=== PATIENT | male | born 1960 | race Caucasian/White ===

== ENCOUNTER 2017-06-28 11:03 | Emergency (ER) | payer SELFPAY ==
[2017-06-28] MEDS ORDERED: IBUPROFEN 600 MG TABLET PO ONE (12:28)
[2017-06-28 13:07] LABS: ABSOLUTE BASOPHILS # (AUTO) 0.1 10^3/uL (0.0-0.2); ABSOLUTE LYMPHOCYTES (AUTO) 1.2 10^3/uL (0.5-4.7); ABSOLUTE MONOCYTES (AUTO) 0.8 10^3/uL (0.1-1.4); ABSOLUTE NEUT (AUTO) 5.9 10^3/uL (1.7-8.2); BASOPHILS % (AUTO) 0.8 % (0-2); EOSINOPHILS % (AUTO) 0.5 % (0-6); HEMOGLOBIN 15.3 g/dL (13.5-17.0); HGB HCT DIFFERENCE 1.9; LYMPHOCYTES % (AUTO) 14.5 % (13-45); MEAN CORPUSCULAR HEMOGLOBIN 35.7 pg (27.0-33.4); MEAN CORPUSCULAR HGB CONC 34.8 g/dL (32.0-36.0); MEAN CORPUSCULAR VOLUME 102 fl (80-97); MONOCYTES % (AUTO) 10.3 % (3-13); SEGMENTED NEUTROPHILS % (AUTO) 73.9 % (42-78)
[2017-06-28 13:13] LABS: APPEARANCE,URINE CLEAR; BILIRUBIN,URINE NEGATIVE (NEGATIVE); GLUCOSE, URINE NEGATIVE (NEGATIVE); KETONES,URINE NEGATIVE (NEGATIVE); LEUKOCYTE ESTERASE,URINE NEGATIVE (NEGATIVE); NITRITE,URINE NEGATIVE (NEGATIVE); PROTEIN,URINE NEGATIVE (NEGATIVE); URINE SPECIFIC GRAVITY 1.002; UROBILINOGEN,URINE NEGATIVE mg/dL (<2.0)
--- NOTE | 2017-06-28 13:19 | RADIOLOGY REPORT (SQ) ---
EXAM DESCRIPTION: CHEST PA/LAT COMPLETED DATE/TIME: 06/28/2017 1:08 pm REASON FOR STUDY: left lat cp COMPARISON: 10/13/2009. EXAM PARAMETERS: NUMBER OF VIEWS: two views TECHNIQUE: Digital Frontal and Lateral radiographic views of the chest acquired. RADIATION DOSE: NA LIMITATIONS: none FINDINGS: LUNGS AND PLEURA: No opacities, masses or pneumothorax. No pleural effusion. MEDIASTINUM AND HILAR STRUCTURES: No masses or contour abnormalities. HEART AND VASCULAR STRUCTURES: Heart normal size. No evidence for failure. BONES: No acute findings. HARDWARE: None in the chest. OTHER: No other significant finding. IMPRESSION: NO SIGNIFICANT RADIOGRAPHIC FINDING IN THE CHEST. TECHNICAL DOCUMENTATION: JOB ID: [id number] [employer]- All Rights Reserved
[2017-06-28 13:32] LABS: ALANINE AMINOTRANSFERASE 34 U/L (21-72); ALBUMIN 3.9 g/dL (3.5-5.0); ALKALINE PHOSPHATASE 68 U/L (38-126); ANION GAP 8 (5-19); ASPARTATE AMINO TRANSFERASE 24 U/L (17-59); BILIRUBIN,DIRECT 0.4 mg/dL (0.0-0.4); BILIRUBIN,TOTAL 0.9 mg/dL (0.2-1.3); BLOOD UREA NITROGEN 7 mg/dL (7-20); CALCIUM 9.1 mg/dL (8.4-10.2); CARBON DIOXIDE 27 mmol/L (22-30); CHLORIDE 100 mmol/L (98-107); CREATININE RESULT 0.82 mg/dL (0.52-1.25); GLUCOSE 101 mg/dL (75-110); POTASSIUM 4.6 mmol/L (3.6-5.0); SODIUM 135.3 mmol/L (137-145); TOTAL PROTEIN 6.7 g/dL (6.3-8.2)
--- NOTE | 2017-06-28 13:52 | ER Document Report ---
ED General - General Chief Complaint: Back Pain Stated Complaint: FLANK PAIN Time Seen by Provider: 06/28/17 12:40 Notes: 57 yo male c/o acute onset of pain to left lateral chest wall yesterday. pain started after he unloaded a truck. pain increased with deep breathing and trunk movement. denies heart pain or shortness of breath TRAVEL OUTSIDE OF THE [place] IN LAST 30 DAYS: No - HPI Onset: Yesterday Onset/Duration: Sudden Quality of pain: Sharp Associated symptoms: None Exacerbated by: Movement Relieved by: Denies Similar symptoms previously: No Recently seen / treated by doctor: No - Related Data Allergies/Adverse Reactions: Penicillins Allergy (Severe, Verified 06/28/17 11:05) rash Past Medical History - General Information source: Patient - Social History Smoking Status: Current Every Day Smoker Chew tobacco use (# tins/day): No Frequency of alcohol use: Heavy Drug Abuse: None Lives with: Family Family History: Reviewed & Not Pertinent Patient has suicidal ideation: No Patient has homicidal ideation: No - Past Medical History Cardiac Medical History: Reports: Hx Hypertension Renal/ Medical History: Denies: Hx Peritoneal Dialysis Past Surgical History: Reports: Hx Testicular Surgery - Right removed for CA - Immunizations Hx Diphtheria, Pertussis, Tetanus Vaccination: No Review of Systems - Review of Systems Constitutional: No symptoms reported EENT: No symptoms reported Cardiovascular: No symptoms reported Respiratory: See HPI Gastrointestinal: No symptoms reported Genitourinary: No symptoms reported Male Genitourinary: No symptoms reported Musculoskeletal: No symptoms reported Skin: No symptoms reported Hematologic/Lymphatic: No symptoms reported Neurological/Psychological: No symptoms reported Physical Exam - Vital signs Vitals: Temp Pulse Resp BP Pulse Ox 98.5 F 97 18 167/107 H 97 06/28/17 11:05 06/28/17 11:05 06/28/17 11:05 06/28/17 11:05 06/28/17 11:05 Interpretation: Hypertensive - known hypertensive. not taking meds x 1 year - General General appearance: Appears well, Alert - HEENT Head: Normocephalic, Atraumatic Eyes: Normal Pupils: PERRL - Respiratory Respiratory status: No respiratory distress Chest status: Tender - focal left lateral intercostal tenderness. good breath sounds throughout Breath sounds: Normal Chest palpation: Normal - Cardiovascular Rhythm: Regular Heart sounds: Normal auscultation Murmur: No - Abdominal Inspection: Normal Distension: No distension Bowel sounds: Normal Tenderness: Nontender Organomegaly: No organomegaly - Back Back: Normal, Nontender - Extremities General upper extremity: Normal inspection, Nontender, Normal color, Normal ROM , Normal temperature General lower extremity: Normal inspection, Nontender, Normal color, Normal ROM , Normal temperature, Normal weight bearing. No: Tejal's sign - Neurological Neuro grossly intact: Yes Cognition: Normal Orientation: AAOx4 [place] Coma Scale Eye Opening: Spontaneous [place] Coma Scale Verbal: Oriented Jalil Coma Scale Motor: Obeys Commands Jalil Coma Scale Total: 15 Speech: Normal Motor strength normal: LUE, RUE, LLE, RLE Sensory: Normal - Psychological Associated symptoms: Normal affect, Normal mood - Skin Skin Temperature: Warm Skin Moisture: Dry Skin Color: Normal Course - Re-evaluation Re-evalutation: 06/28/17 13:49 pt is a 57 yo male c/o pain to left lateral chest wall, worse with movement and deep inspiration. lungs are CTA, no increased work of breathing. H&P is c/w muscluskelatal pain. chest xray is negative, EKG showing NSR, no ectopy or ST change. I estimate there is low risk for pneumothorax, PE, acute coronary syndrom or thoracic aortic dissection. thus I consider discharge home reasonable with a short course of muscle relaxant and pain medication. - Vital Signs Vital signs: Temp Pulse Resp BP Pulse Ox 98.5 F 97 18 167/107 H 97 06/28/17 11:05 06/28/17 11:05 06/28/17 11:05 06/28/17 11:05 06/28/17 11:05 - Laboratory Result Diagrams: 06/28/17 12:46 06/28/17 12:46 Laboratory results interpreted by me: 06/28/17 06/28/17 06/28/17 12:46 12:46 12:46 RBC 4.30 L MCV 102 H MCH 35.7 H Plt Count 128 L Sodium 135.3 L Urine Blood SMALL H Discharge - Discharge Clinical Impression: Chest wall pain Condition: Stable Disposition: HOME, SELF-CARE Instructions: Anti-Inflammatory Medication ([facility]), Chest Wall Pain ([facility]), Muscle Strain ([facility]), Oral Narcotic Medication ([facility]), Warm Packs ([facility]), Muscle Relaxers ([facility]) Additional Instructions: Your xray and EKG are normal Your pain is most likely musculskelatal in origin Take medications as prescribed apply warm compresses to sore area Follow up with primary care if pain persists return to ER for any worsening Prescriptions: Ibuprofen [Motrin 800 Mg Tablet] 800 mg PO Q6H #20 tablet Methocarbamol [Robaxin 500 Mg Tablet] 1,000 mg PO Q6 #30 tablet Oxycodone HCl/Acetaminophen [Percocet 5-325 mg Tablet] 1 - 2 tab PO ASDIR PRN # 15 tablet PRN Reason:
[2017-06-28 14:05] VITALS: BP 164/97
--- NOTE | 2017-06-29 00:08 | EKG REPORT ---
SEVERITY:- NORMAL ECG - SINUS RHYTHM : Confirmed by: Becky Vogt 29-Jun-2017 00:07:59
== END 2017-06-28 14:04 | disposition home or self-care (01) ==
LOC: ER 11:03
DX: R07.89 Other chest pain (principal); M54.9 Dorsalgia, unspecified; F17.200 Nicotine dependence, unspecified, uncomplicated
CPT/HCPCS: 36415; 71020; 80053; 81001; 85025; 93005; 93010; 99284

== ENCOUNTER 2018-04-29 19:14 | Inpatient (IN) | payer SELFPAY ==
--- NOTE | 2018-04-29 20:37 | ER Document Report ---
ED Medical Screen (RME) - General Chief Complaint: Productive Cough Stated Complaint: TROUBLE BREATHING Time Seen by Provider: 04/29/18 20:34 Mode of Arrival: Ambulatory Information source: Patient Notes: Patient complained of shortness of breath associated with cough productive of brownish sputum. He denies fever. chills, chest pain, nausea or vomiting. I have greeted and performed a rapid initial assessment of this patient. A comprehensive ED assessment and evaluation of the patient, analysis of test results and completion of the medical decision making process will be conducted by additional ED providers. TRAVEL OUTSIDE OF THE [place] IN LAST 30 DAYS: No - Related Data Allergies/Adverse Reactions: Penicillins Allergy (Severe, Verified 04/29/18 19:26) rash Past Medical History - Social History Chew tobacco use (# tins/day): No Frequency of alcohol use: None Drug Abuse: None - Past Medical History Cardiac Medical History: Reports: Hx Hypertension Renal/ Medical History: Denies: Hx Peritoneal Dialysis Past Surgical History: Reports: Hx Testicular Surgery - Right removed for CA - Immunizations Hx Diphtheria, Pertussis, Tetanus Vaccination: No Physical Exam - Vital signs Vitals: Temp Pulse Resp BP Pulse Ox 98.8 F 89 20 136/86 H 95 04/29/18 19:42 04/29/18 19:42 04/29/18 19:42 04/29/18 19:42 04/29/18 19:42 Course - Vital Signs Vital signs: Temp Pulse Resp BP Pulse Ox 98.8 F 89 20 136/86 H 95 04/29/18 19:42 04/29/18 19:42 04/29/18 19:42 04/29/18 19:42 04/29/18 19:42
[2018-04-29 21:57] LABS: ABSOLUTE BASOPHILS # (AUTO) 0.1 10^3/uL (0.0-0.2); ABSOLUTE LYMPHOCYTES (AUTO) 1.4 10^3/uL (0.5-4.7); ABSOLUTE NEUT (AUTO) 10.8 10^3/uL (1.7-8.2); BASOPHILS % (AUTO) 0.6 % (0-2); EOSINOPHILS % (AUTO) 0.2 % (0-6); HEMATOCRIT 36.9 % (37.9-51.0); HEMOGLOBIN 13.2 g/dL (13.5-17.0); LYMPHOCYTES % (AUTO) 10.2 % (13-45); MEAN CORPUSCULAR HEMOGLOBIN 34.7 pg (27.0-33.4); MEAN CORPUSCULAR HGB CONC 35.8 g/dL (32.0-36.0); MEAN CORPUSCULAR VOLUME 97 fl (80-97); MONOCYTES % (AUTO) 7.4 % (3-13); PLATELET COUNT 577 10^3/uL (150-450); RED BLOOD COUNT 3.81 10^6/uL (4.35-5.55); RED CELL DISTRIBUTION WIDTH 14.1 % (11.5-14.0); SEGMENTED NEUTROPHILS % (AUTO) 81.6 % (42-78); TOTAL CELLS COUNTED % (AUTO) 100 %; WHITE BLOOD COUNT 13.3 10^3/uL (4.0-10.5)
[2018-04-29 22:14] LABS: ALANINE AMINOTRANSFERASE 66 U/L (21-72); ALBUMIN 3.2 g/dL (3.5-5.0); ALKALINE PHOSPHATASE 101 U/L (38-126); ANION GAP 12 (5-19); ASPARTATE AMINO TRANSFERASE 37 U/L (17-59); BILIRUBIN,DIRECT 0.6 mg/dL (0.0-0.4); BILIRUBIN,TOTAL 0.9 mg/dL (0.2-1.3); BLOOD UREA NITROGEN 5 mg/dL (7-20); CALCIUM 8.9 mg/dL (8.4-10.2); CARBON DIOXIDE 25 mmol/L (22-30); CHLORIDE 89 mmol/L (98-107); GLUCOSE 104 mg/dL (75-110); POTASSIUM 3.8 mmol/L (3.6-5.0); SODIUM 125.5 mmol/L (137-145); TOTAL PROTEIN 6.8 g/dL (6.3-8.2)
[2018-04-29 22:26] LABS: INTERNATIONAL RATION (INR) 1.25; NT PRO BNP 136 pg/mL (5-900); PROTHROMBIN TIME 16.3 SEC (11.4-15.4)
[2018-04-29 22:27] LABS: PARTIAL THROMBOPLASTIN TIME 33.2 SEC (23.5-35.8); TROPONIN I < 0.012 ng/mL
[2018-04-29] MEDS ORDERED: NORMAL SALINE 1000 ML 1,000 ML IV ONE (23:13)
--- NOTE | 2018-04-30 00:21 | ER Document Report ---
ED Respiratory Problem - General Mode of Arrival: Ambulatory TRAVEL OUTSIDE OF THE [place] IN LAST 30 DAYS: No <BARBIE GOMEZ - Last Filed: 04/30/18 06:53> <MICHAEL HOLGUIN - Last Filed: 04/30/18 07:42> - General Chief Complaint: Productive Cough Stated Complaint: TROUBLE BREATHING Time Seen by Provider: 04/29/18 20:34 Notes: Patient is a 58-year-old male that comes to the emergency department for chief complaint of cough with bennett sputum production, he states he has coughed so much she has become sore in his ribs, he states that intermittently he feels some shortness of breath. He reports some chills, some night sweats. He denies nausea or vomiting, specific chest pain other than with cough. He takes no daily medications. He denies any known medical diagnosis, he has not seen a primary care provider for years. 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 He smokes. (BARBIE GOMEZ) - Related Data Allergies/Adverse Reactions: Penicillins Allergy (Severe, Verified 04/29/18 19:26) rash Past Medical History - General Information source: Patient - Social History Smoking Status: Current Every Day Smoker Chew tobacco use (# tins/day): No Smoking Education Provided: Yes - <3 min Frequency of alcohol use: None Drug Abuse: None Lives with: Family Family History: Reviewed & Not Pertinent Patient has suicidal ideation: No Patient has homicidal ideation: No - Past Medical History Cardiac Medical History: Reports: Hx Hypertension Renal/ Medical History: Denies: Hx Peritoneal Dialysis Past Surgical History: Reports: Hx Testicular Surgery - Right removed for CA - Immunizations Hx Diphtheria, Pertussis, Tetanus Vaccination: Yes <BARBIE GOMEZ - Last Filed: 04/30/18 06:53> Review of Systems - Review of Systems Constitutional: See HPI EENT: No symptoms reported Cardiovascular: No symptoms reported Respiratory: See HPI Gastrointestinal: No symptoms reported Genitourinary: No symptoms reported Male Genitourinary: No symptoms reported Musculoskeletal: No symptoms reported Skin: No symptoms reported Hematologic/Lymphatic: No symptoms reported Neurological/Psychological: No symptoms reported <BARBIE GOMEZ - Last Filed: 04/30/18 06:53> Physical Exam <BARBIE GOMEZ - Last Filed: 04/30/18 06:53> <MICHAEL HOLGUIN - Last Filed: 04/30/18 07:42> - Vital signs Vitals: Temp Pulse Resp BP Pulse Ox 98.8 F 89 20 136/86 H 95 04/29/18 19:42 04/29/18 19:42 04/29/18 19:42 04/29/18 19:42 04/29/18 19:42 - Notes Notes: GENERAL: Alert, interacts well. No acute distress. HEAD: Normocephalic, atraumatic. EYES: Pupils equal, round, and reactive to light. Extraocular movements intact. ENT: Oral mucosa moist, tongue midline. NECK: Full range of motion. Supple. Trachea midline. LUNGS: A few scattered coarse breath sounds, intermittent cough, no wheezes, rales, or rhonchi. No respiratory distress. HEART: Regular rate and rhythm. No murmur ABDOMEN: Soft, non-tender. Non-distended. Bowel sounds present in all 4 quadrants. EXTREMITIES: Moves all 4 extremities spontaneously. No edema, normal radial and dorsalis pedis pulses bilaterally. No cyanosis. BACK: no cervical, thoracic, lumbar midline tenderness. No saddle anesthesia, normal distal neurovascular exam. NEUROLOGICAL: Alert and oriented x3. Normal speech. [cranial nerves II through XII grossly intact]. PSYCH: Normal affect, normal mood. SKIN: Warm, dry, normal turgor. No rashes or lesions noted. (BARBIE GOMEZ) Course - Laboratory Result Diagrams: 04/29/18 21:45 04/30/18 05:30 <BARBIE GOMEZ - Last Filed: 04/30/18 06:53> - Laboratory Result Diagrams: 04/29/18 21:45 04/30/18 05:30 <MICHAEL HOLGUIN - Last Filed: 04/30/18 07:42> - Re-evaluation Re-evalutation: 04/30/18 I wore a respirator mask when evaluating the patient because of the initial concerning cavitary lesion on the chest x-ray. He does have leukocytosis which is mild, no bandemia. No fever. Persistent mild cough. Unremarkable respiratory examination on my evaluation, no hypoxia. Troponin is not elevated. Because of indeterminate lesion, ongoing cough, smoking patient, will perform CTA to evaluate further. CTA showing left-sided pulmonary emboli extending into smaller branches. In addition to this there are multiple lesions, possible infection versus neoplasm versus immune reaction. Patient has hyponatremia, he does have a history of alcohol use which is heavy although he has not had any recently reportedly per patient and son, concern for possible SIADH and undiagnosed cancer history with secondary pulmonary emboli. Patient does not have established primary care follow-up, he does not have insurance, he reports significant dyspnea on exertion, will discuss with hospitalist for admission. Giving slow NS for hyponatremia. Discussed with Dr. Shelley, internal medicine, patient will be admitted to telemetry full admission. He recommends Lovenox for anticoagulation instead of heparin. (BARBIE GOMEZ) 04/30/18 07:42 Saw this patient with UMESH Reagan. Agree with management. Stable at time of admission. Lovenox initiated. (MICHAEL HOLGUIN) - Vital Signs Vital signs: Temp Pulse Resp BP Pulse Ox 98.8 F 89 26 H 125/86 H 95 04/29/18 19:42 04/29/18 19:42 04/30/18 07:01 04/30/18 07:00 04/30/18 07:01 - Laboratory Laboratory results interpreted by me: 04/29/18 04/29/18 04/29/18 21:45 21:45 21:45 WBC 13.3 H RBC 3.81 L Hgb 13.2 L Hct 36.9 L MCH 34.7 H RDW 14.1 H Plt Count 577 H Seg Neutrophils % 81.6 H Lymphocytes % 10.2 L Absolute Neutrophils 10.8 H PT 16.3 H Sodium 125.5 L Chloride 89 L BUN 5 L Direct Bilirubin 0.6 H Albumin 3.2 L Critical Care Note - Critical Care Note Total time excluding time spent on procedures (mins): 45 - evaluation and management of SOB, diagnosis of PE and lung mass, coordination of admission, multiple re-evaluations. <MICHAEL HOLGUIN - Last Filed: 04/30/18 07:42> Discharge - Discharge Admitting Provider: Hospitalist Unit Admitted: Telemetry <BARBIE GOMEZ - Last Filed: 04/30/18 06:53> - Discharge Admitting Provider: [place] Shelley Unit Admitted: Telemetry <MICHAEL HOLGUIN - Last Filed: 04/30/18 07:42> - Discharge Clinical Impression: Shortness of breath, Lesion of lung, Hyponatremia Pulmonary embolism Qualifiers: Pulmonary embolism type: other Chronicity: acute Acute cor pulmonale presence: without acute cor pulmonale Qualified Code(s): I26.99 - Other pulmonary embolism without acute cor pulmonale Condition: Stable Disposition: ADMITTED INPATIENT
[2018-04-30] MEDS: NORMAL SALINE 1000 ML 1,000 ML IV PRN ×2 (02:26→15:32)
[2018-04-30] MEDS ORDERED: GUAIFENESIN SYRP 200 MG/10 ML UDC PO PRN (02:41)
[2018-04-30] MEDS ORDERED: ACETAMINOPHEN 325 MG TABLET PO PRN (02:41)
[2018-04-30] MEDS ORDERED: IPRATROPIUM/ALBUTEROL 0.5-2.5 MG/3 ML AMPUL NEB PRN (02:41)
[2018-04-30] MEDS: ENOXAPARIN SODIUM INJ 80 MG/0.8 ML DISP.SYRIN SUBCUT SCH ×3 (03:08→22:21)
[2018-04-30 06:06] LABS: APPEARANCE,URINE CLEAR; BILIRUBIN,URINE NEGATIVE (NEGATIVE); COLOR,URINE YELLOW; GLUCOSE, URINE NEGATIVE (NEGATIVE); KETONES,URINE 25 mg/dL (NEGATIVE); LEUKOCYTE ESTERASE,URINE NEGATIVE (NEGATIVE); NITRITE,URINE NEGATIVE (NEGATIVE); PROTEIN,URINE NEGATIVE (NEGATIVE); URINE SPECIFIC GRAVITY 1.033; UROBILINOGEN,URINE NEGATIVE mg/dL (<2.0)
[2018-04-30 06:23] LABS: ANION GAP 8 (5-19); BLOOD UREA NITROGEN 4 mg/dL (7-20); CALCIUM 8.3 mg/dL (8.4-10.2); CARBON DIOXIDE 22 mmol/L (22-30); CHLORIDE 100 mmol/L (98-107); GLUCOSE 107 mg/dL (75-110); POTASSIUM 4.2 mmol/L (3.6-5.0); SODIUM 130.4 mmol/L (137-145)
--- NOTE | 2018-04-30 06:47 | PDOC H&P ---
History of Present Illness Admission Date/PCP: 04/30/18 02:48 СВЕТЛАНА SANABRIA MD Patient complains of: Shortness of breath History of Present Illness: ELIZABETH JOHNS is a 58 year old male with past medical history of Tobacco Dependence patient received tobacco cessation counseling and offered nicotine replacement options presents with several weeks of shortness of breath associated with productive purulent sputum prompting evaluation in the emergency room is found to have bilateral pulmonary emboli, cavitary lung lesions and hyponatremia. Patient denies previous history of TB exposure, remote travel, homelessness, incarceration or IV drugs. He denies lower extremity swelling or trauma. He is started on Lovenox, empiric antibiotics and referred to the hospitalist for admission. Past Medical History Cardiac Medical History: Reports: Hypertension Psychiatric Medical History: Reports: Tobacco Dependency Past Surgical History Past Surgical History: Reports: None Social History Information Source: Patient Smoking Status: Current Every Day Smoker Frequency of Alcohol Use: None Drugs: None - Advance Directive Resuscitation Status: Full Code Family History Family History: COPD. denies: Malignancy Parental Family History Reviewed: Yes Children Family History Reviewed: Yes Sibling(s) Family History Reviewed.: Yes Medication/Allergy Home Medications: No Home Medications 1 07/03/12 Oxycodone HCl 5 mg PO Q6H #15 tablet 07/03/12 Ibuprofen [Motrin 800 Mg Tablet] 800 mg PO Q6H #20 tablet 06/28/17 Methocarbamol [Robaxin 500 Mg Tablet] 1,000 mg PO Q6 #30 tablet 06/28/17 Oxycodone HCl/Acetaminophen [Percocet 5-325 mg Tablet] 1 - 2 tab PO ASDIR PRN # 15 tablet 06/28/17 Allergies/Adverse Reactions: Penicillins Allergy (Severe, Verified 04/29/18 19:26) rash Review of Systems Constitutional: PRESENT: anorexia, fatigue, fever(s), night sweats, weakness, weight loss Eyes: ABSENT: visual disturbances Ears: ABSENT: hearing changes Cardiovascular: ABSENT: chest pain, dyspnea on exertion, edema, orthropnea, palpitations Respiratory: PRESENT: as per HPI, cough, dyspnea, sputum. ABSENT: hemoptysis Gastrointestinal: ABSENT: abdominal pain, constipation, diarrhea, hematemesis, hematochezia, nausea, vomiting Genitourinary: ABSENT: dysuria, hematuria Musculoskeletal: ABSENT: joint swelling Neurological: ABSENT: abnormal gait, abnormal speech, confusion, dizziness, focal weakness, syncope Psychiatric: ABSENT: anxiety, depression, homidical ideation, suicidal ideation Endocrine: ABSENT: cold intolerance, heat intolerance, polydipsia, polyuria Hematologic/Lymphatic: ABSENT: easy bleeding, easy bruising Physical Exam Vital Signs: Temp Pulse Resp BP Pulse Ox 98.8 F 89 20 120/84 94 04/29/18 19:42 04/29/18 19:42 04/30/18 04:01 04/30/18 04:01 04/30/18 04:01 General appearance: PRESENT: no acute distress, hard of hearing, mild distress. ABSENT: disheveled, obese Head exam: PRESENT: atraumatic, normocephalic Eye exam: PRESENT: conjunctiva pink, EOMI, PERRLA. ABSENT: scleral icterus Ear exam: PRESENT: normal external ear exam Mouth exam: PRESENT: moist, tongue midline Neck exam: ABSENT: carotid bruit, JVD, lymphadenopathy, thyromegaly Respiratory exam: PRESENT: accessory muscle use, crackles, prolonged expiratory phas, rales, retraction, tachypnea Cardiovascular exam: PRESENT: RRR. ABSENT: diastolic murmur, rubs, systolic murmur Pulses: PRESENT: normal dorsalis pedis pul Vascular exam: PRESENT: normal capillary refill GI/Abdominal exam: PRESENT: normal bowel sounds, soft. ABSENT: distended, guarding, mass, organolmegaly, rebound, tenderness Rectal exam: PRESENT: deferred Extremities exam: PRESENT: full ROM. ABSENT: calf tenderness, clubbing, pedal edema Neurological exam: PRESENT: alert, awake, oriented to person, oriented to place , oriented to time, oriented to situation, CN II-XII grossly intact. ABSENT: motor sensory deficit Psychiatric exam: PRESENT: appropriate affect, normal mood. ABSENT: homicidal ideation, suicidal ideation Skin exam: PRESENT: dry, intact, warm. ABSENT: cyanosis, rash Results Laboratory Results: 04/30/18 05:30 04/30/18 04/30/18 05:30 05:30 Sodium 130.4 L Potassium 4.2 Chloride 100 Carbon Dioxide 22 Anion Gap 8 BUN 4 L Creatinine 0.55 Est GFR ( Amer) > 60 Est GFR (Non-Af Amer) > 60 Glucose 107 Calcium 8.3 L Urine Color YELLOW Urine Appearance CLEAR Urine pH 7.0 Ur Specific Covel 1.033 Urine Protein NEGATIVE Urine Glucose (UA) NEGATIVE Urine Ketones 25 H Urine Blood NEGATIVE Urine Nitrite NEGATIVE Ur Leukocyte Esterase NEGATIVE Urine WBC (Auto) 1 Urine RBC (Auto) 2 Assessment & Plan - Diagnosis (1) Pneumonia Is this a current diagnosis for this admission?: Yes Plan: Complicated by COPD, chronic tobacco, cavitary lung lesions. 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 Follow-up chemistry (4) Lesion of lung Is this a current diagnosis for this admission?: Yes Plan: Infectious versus malignant, pulmonology consult for bronchoscopy - Time Time Spent: 50 to 70 Minutes - Inpatient Certification Medical Necessity: Need Close Monitoring Due to Risk of Patient Decompensation
--- NOTE | 2018-04-30 07:46 | RADIOLOGY REPORT (SQ) ---
CT CHEST ANGIOGRAPHY WITHOUT THEN WITH IV CONTRAST HISTORY: Cough. SOB. Evaluate left apical lesion. COMPARISON: None. TECHNIQUE: CT scan of the chest. This exam was performed according to our departmental dose-optimization program, which includes automated exposure control, adjustment of the mA and/or kV according to patient size and/or use of iterative reconstruction technique. 3-d post processing. FINDINGS: 2 distinct thick walled cavitary lesions centered within the left lung apex, measuring approximately 6.6 x 4.4 x 5.6 cm, and 3.0 x 3.5 x 4.8 cm. There there are fibrotic changes surrounding the aforementioned lesions in the left upper lobe abutting the major fissure. Prominent mediastinal lymph nodes, with the largest measuring 1.4 cm in the left paratracheal region. Left hilar adenopathy is also present. Multiple filling defects in the distal left main pulmonary artery extending into the left lower lobar segmental branches consistent with acute pulmonary embolism. No evidence of right heart strain. Scattered emphysematous changes in the right apex. No pleural effusions or pneumothorax. Trace pericardial effusion. Visualized upper abdomen is unremarkable. No acute osseous findings. IMPRESSION: 1. Acute pulmonary embolism involving the left main pulmonary artery extending into the left lower lumbar segmental branches. No evidence of right heart strain. 2. 2 distinct thick-walled cavitary lesion centered within the left lung apex, as stated above. Differential diagnosis includes infectious, neoplastic, inflammatory, and autoimmune processes. Correlate with clinical history. 3. Mediastinal left hilar adenopathy.
--- NOTE | 2018-04-30 07:46 | RADIOLOGY REPORT (SQ) ---
XR CHEST 2 VIEWS HISTORY: Cough. COMPARISON: None. FINDINGS/IMPRESSION: Normal cardiomediastinal silhouette. Pulmonary vasculature is unremarkable. Cavitary lesion within the left apex, better seen on same-day CT scan. Patchy opacities surrounding the left upper and midlung zone. Right lung is clear. No pleural effusion or pneumothorax is seen. No acute osseous findings.
[2018-04-30] MEDS: IPRATROPIUM/ALBUTEROL 0.5-2.5 MG/3 ML AMPUL NEB SCH ×3 (09:15→20:05)
[2018-04-30] MEDS: LEVOFLOXACIN 750 MG/D5W RTU 750 MG/150 ML RTUPB IV SCH (12:00)
[2018-05-01] MEDS: NORMAL SALINE 1000 ML 1,000 ML IV PRN ×3 (00:15→21:29)
[2018-05-01] MEDS: IPRATROPIUM/ALBUTEROL 0.5-2.5 MG/3 ML AMPUL NEB SCH ×4 (02:17→19:38)
[2018-05-01] MEDS ORDERED: VANCOMYCIN HCL 1,000 MG in DEXTROSE 5%-WATER 250 ML IV ONE (02:30)
[2018-05-01 08:21] LABS: ABSOLUTE BASOPHILS # (AUTO) 0.1 10^3/uL (0.0-0.2); ABSOLUTE MONOCYTES (AUTO) 0.9 10^3/uL (0.1-1.4); ABSOLUTE NEUT (AUTO) 7.9 10^3/uL (1.7-8.2); BASOPHILS % (AUTO) 1.4 % (0-2); EOSINOPHILS % (AUTO) 0.2 % (0-6); HEMATOCRIT 30.7 % (37.9-51.0); LYMPHOCYTES % (AUTO) 10.2 % (13-45); MEAN CORPUSCULAR HEMOGLOBIN 33.9 pg (27.0-33.4); MEAN CORPUSCULAR HGB CONC 35.2 g/dL (32.0-36.0); MEAN CORPUSCULAR VOLUME 96 fl (80-97); MONOCYTES % (AUTO) 8.8 % (3-13); PLATELET COUNT 445 10^3/uL (150-450); RED BLOOD COUNT 3.19 10^6/uL (4.35-5.55); SEGMENTED NEUTROPHILS % (AUTO) 79.4 % (42-78); TOTAL CELLS COUNTED % (AUTO) 100 %; WHITE BLOOD COUNT 9.9 10^3/uL (4.0-10.5)
[2018-05-01 08:23] LABS: HEMOGLOBIN 10.8 g/dL (13.5-17.0)
[2018-05-01 08:24] LABS: ANION GAP 7 (5-19); BLOOD UREA NITROGEN 3 mg/dL (7-20); CALCIUM 7.9 mg/dL (8.4-10.2); CARBON DIOXIDE 23 mmol/L (22-30); CHLORIDE 101 mmol/L (98-107); GLUCOSE 107 mg/dL (75-110); POTASSIUM 3.8 mmol/L (3.6-5.0); SODIUM 130.5 mmol/L (137-145)
[2018-05-01] MEDS ORDERED: VORICONAZOLE 200 MG TABLET PO SCH (10:00)
[2018-05-01] MEDS: LEVOFLOXACIN 750 MG/D5W RTU 750 MG/150 ML RTUPB IV SCH (10:33)
[2018-05-01] MEDS: ENOXAPARIN SODIUM INJ 80 MG/0.8 ML DISP.SYRIN SUBCUT SCH ×2 (10:33→22:30)
--- NOTE | 2018-05-01 13:42 | PDOC PROGRESS REPORT ---
Subjective Progress Note for:: 05/01/18 Subjective:: This is a 58-year-old male with a past medical history hypertension and chronic tobacco smoking who presented with cough and shortness of breath. Patient was noted to have left-sided pulmonary embolism and was also noted to have 2 cavitary lesions on the left lung. No acute event overnight. Patient denies short of breath or chest pain. He is saturating well on room air. Reason For Visit: PE, LUNG MASS, PNEUMONIA Physical Exam Vital Signs: Temp Pulse Resp BP Pulse Ox 99.1 F 77 20 154/79 H 97 05/01/18 11:47 05/01/18 11:47 05/01/18 11:47 05/01/18 11:47 05/01/18 11:47 Pulse Oximeter Continuous Start: 04/30/18 02: 42 Freq: RTQ4 Status: Active Document 05/01/18 07:53 [facility] (Rec: 05/01/18 08:11 [facility] [email or web address]) Pulse Oximetry Assessment Oxygen Saturation (92-100) 97 Oxygen Delivery Method Room Air Equipment Usage Equipment in Use Continuous SpO2 Machine # [id number] Intake & Output 04/30/18 05/01/18 05/02/18 06:59 06:59 06:59 Intake Total 2733 675 Balance 2733 675 Weight 147 lb 11.355 oz General appearance: PRESENT: no acute distress, well-developed, well-nourished Head exam: PRESENT: atraumatic, normocephalic Eye exam: PRESENT: conjunctiva pink, EOMI, PERRLA. ABSENT: scleral icterus Ear exam: PRESENT: normal external ear exam Mouth exam: PRESENT: moist, tongue midline Neck exam: ABSENT: carotid bruit, JVD, lymphadenopathy, thyromegaly Respiratory exam: PRESENT: clear to auscultation lena. ABSENT: rales, rhonchi, wheezes Cardiovascular exam: PRESENT: RRR. ABSENT: diastolic murmur, rubs, systolic murmur Pulses: PRESENT: normal dorsalis pedis pul GI/Abdominal exam: PRESENT: normal bowel sounds, soft. ABSENT: distended, guarding, mass, organolmegaly, rebound, tenderness Rectal exam: PRESENT: deferred Neurological exam: PRESENT: alert, awake, oriented to person, oriented to place , oriented to time, oriented to situation, CN II-XII grossly intact. ABSENT: motor sensory deficit Results Laboratory Results: 05/01/18 07:55 05/01/18 07:55 05/01/18 05/01/18 07:55 07:55 WBC 9.9 RBC 3.19 L Hgb 10.8 L D Hct 30.7 L MCV 96 MCH 33.9 H MCHC 35.2 RDW 14.0 Plt Count 445 Seg Neutrophils % 79.4 H Lymphocytes % 10.2 L Monocytes % 8.8 Eosinophils % 0.2 Basophils % 1.4 Absolute Neutrophils 7.9 Absolute Lymphocytes 1.0 Absolute Monocytes 0.9 Absolute Eosinophils 0.0 Absolute Basophils 0.1 Sodium 130.5 L Potassium 3.8 Chloride 101 Carbon Dioxide 23 Anion Gap 7 BUN 3 L Creatinine 0.52 Est GFR ( Amer) > 60 Est GFR (Non-Af Amer) > 60 Glucose 107 Calcium 7.9 L Impressions: Chest X-Ray 04/29/18 20:35 FINDINGS/IMPRESSION: Normal cardiomediastinal silhouette. Pulmonary vasculature is unremarkable. Cavitary lesion within the left apex, better seen on same-day CT scan. Patchy opacities surrounding the left upper and midlung zone. Right lung is clear. No pleural effusion or pneumothorax is seen. No acute osseous findings. Chest/Abdomen CTA 04/29/18 23:15 IMPRESSION: 1. Acute pulmonary embolism involving the left main pulmonary artery extending into the left lower lumbar segmental branches. No evidence of right heart strain. 2. 2 distinct thick-walled cavitary lesion centered within the left lung apex, as stated above. Differential diagnosis includes infectious, neoplastic, inflammatory, and autoimmune processes. Correlate with clinical history. 3. Mediastinal left hilar adenopathy. Assessment & Plan - Diagnosis (1) Pulmonary embolism Qualifiers: Pulmonary embolism type: other Chronicity: acute Acute cor pulmonale presence: without acute cor pulmonale Qualified Code(s): I26.99 - Other pulmonary embolism without acute cor pulmonale Is this a current diagnosis for this admission?: Yes Plan: Patient is currently on therapeutic Lovenox. Continue anticoagulation for now. As mentioned patient is saturating well on room air. (2) Pulmonary cavitary lesion Is this a current diagnosis for this admission?: Yes Plan: Patient was initially placed on TB isolation. Specimen for quantitative urine cold has been obtained. Pending sputum AFB smears. Discussed with Dr. Gonsales this morning and he does plan to proceed with bronchoscopy. He prefers patient to be continued on Lovenox for 2-3 more days before doing a brown. Discussed with ID, Dr. Rivera. Will hold off on antifungal therapy for now. We will switch levofloxacin to azithromycin. Continue vancomycin for now as patient's initial blood cultures grew gram-positive cocci 2/2. (3) Bacteremia Is this a current diagnosis for this admission?: Yes Plan: Blood cultures grew gram-positive cocci in clusters 2/2. We will continue vancomycin point for now. Follow-up on final culture results. (4) Hyponatremia Is this a current diagnosis for this admission?: Yes Plan: Improving. This could be possibly from SIADH. Patient does have pulmonary lesions and bronchoscopy will be done to rule out malignancy. - Time Time Spent with patient: 25-34 minutes
[2018-05-01] MEDS: VANCOMYCIN HCL 1,000 MG in DEXTROSE 5%-WATER 250 ML IV SCH ×2 (13:49→22:24)
--- NOTE | 2018-05-01 15:31 | EKG REPORT ---
SEVERITY:- BORDERLINE ECG - SINUS RHYTHM BORDERLINE T ABNORMALITIES, ANT-LAT LEADS : Confirmed by: Tiki Murray MD 01-May-2018 15:30:52
[2018-05-01] MEDS: AZITHROMYCIN 250 MG TABLET PO SCH (15:45)
--- NOTE | 2018-05-01 16:59 | Progress Note ---
Provider Note Provider Note: ID Consult Note Asked to review patient's chart by Dr Acevedo and spoke with him via telephone. Pt not seen or examined. Mr. 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 Per H&P, pt admitted to with several weeks of SOB - clarified later to Dr Acevedo as worsening more acutely, over several days to a week. Pt had mild associated weight loss (not quantified). Upon initial ROS, pt admitted to anorexia, fatigue , fevers, night sweats, and also generalized weakness. He denied hemoptysis. Per H&P, the patient denied previous TB exposure, remote travel, homelessness, IVDU or incarceration. On initial exam pt was documented as tachypneic with accessory muscle use, prolonged expiratory phase, and crackles; no murmur was heard and calves were nontender. Labs were notable for leukocytosis 13.3, mild normocytic anemia, reactive thrombocytosis plts 577, hyponatremia 125 mmol/L and low chloride. CXR 2 view revealed cavitary lesion L apex, which was followed by CTA, read as showing 2 thick walled cavitary lesions centered within the left lung apex 6.6 x 5.6 x 4.4cm and 3 x 3.5 x 4.8cm with surrounding fibrotic changes, L hilar adenopathy and prominent mediastinal lymph nodes, along with multiple filling defects in the distal L main pulmonary artery c/w acute PE. Lovenox was started, along with empiric IV Levaquin and IV vancomycin, and IVF NS. Pt was admitted to airborne isolation room, and sputum sent along with AFB smear and culture, fungal smear and culture of sputum also. Today, afebrile thus far, on room air, not tachypenic, no SOB or CP reported. Leukocytosis resolved. Hyponatremia improved. Two AFB smears negative at this point. HIV antibody test negative. Quantiferon pending. BCx drawn on presentation are preliminarily reported as showing GPCs in clusters from each set. Impression 1. L apical cavitary lung lesion 2. Gram positive cocci in blood cultures Differential diagnosis of a cavitary lung lesion is broad, including noninfectious and infectious considerations. In terms of infectious etiologies, with fever and positive blood cultures showing GPCs in clusters, septic pulmonary emboli can be considered or necrotizing pneumonia due to Staph aureus with secondary bacteremia. No air-fluid level is present to suggest lung abscess. No history in patient's chart suggests risk factors for aspiration ( e.g. alcoholism, drug use, epilepsy, poor dentition). TB or other mycobacterial disease is also in the differential diagnosis for apical cavitary lesions with surrounding fibrotic changes. Non-tuberculous mycobacteria are less likely to cause thick walled cavity, however. Endemic fungi such as Histoplasma can also be considered with exposure to a large burden of soil likely contaminated with bird or bat droppings, chicken coops). Blastomycosis is less likely to cavitate than histoplasmosis or TB. It is possible the patient could have a coagulase negative Staph contaminating blood cultures drawn emergently in the ED, and a separate process in the lungs that is unrelated, but at present time, the identification of the GPC is not known, nor is there any guiding information from the sputum samples. Invasive aspergillosis could be considered in a profoundly immuncompromised patient, which the patient is not. Chronic necrotizing aspergillosis is a diagnosis of exclusion. Recommendations - Continue vancomycin pending more information from blood cultures. - If GPCs in blood cultures are identified as Staph aureus, blood cultures after 2-3 days of treatment until blood culture clearance is documented, get TTE , and examine patient for any other evidence of metastatic infectious disease ( e.g. back pain or spinal tenderness on percussion, erythematous painful joints, etc.). If pt appears to have Staph aureus in respiratory and blood cultures, sending an influenza PCR might be helpful to try to identify a risk factor for necrotizing Staphylococcal pneumonia. Although this is not influenza season, occasional sporadic cases have still been reported in the state at this time. - For cavitary lung lesion, agree with workup performed to date, including HIV test, Quantiferon or PPD, sputum for bacterial culture and stain, AFB culture and smear, fungal culture. F/u studies in process. - If there are exposure risks that raise the question of histoplasmosis, sending urine histoplasma antigen could also be considered. - With TB in the differential, fluoroquinolones may be best avoided if an alternative empiric antibiotic is reasonable, such as Rocephin plus azithromycin for CAP. Fluoroquinolones are second line TB drugs, and empiric fluoroquinolone therapy has the potential to confound or delay diagnosis of TB ( e.g. If no definitive microbiological diagnosis is established but pt has clinical improvement on fluoroquinolone, then the pt may be assumed to have a typical bacterial infection that is responding to Levaquin, when in actuality short term improvement is due to anti-tuberculous activity of the drug). Whether azithromycin in addition to Rocephin is truly necessary is debatable, as atypicals are unlikely to cause chronic pneumonia, but it is not unreasonable while awaiting further information. - Generally, given the broad differential considerations for cavitary lung lesion, if pt is stable and disease course has been chronic or indolent (which appears to be the case apart from superimposed PE), the focus should be on methodically, carefully evaluating patient and establishing a diagnosis. Recommend against further broadening antimicrobial therapy at this time. Empiric antifungal therapy is generally not indicated apart from profoundly immunocompromised patient with severe or rapidly progressing disease. Recommend avoiding antifungal therapy empirically for this patient. Renny Rivera MD [facility] Infectious Diseases pager [phone]
[2018-05-02] MEDS: VANCOMYCIN HCL 1,000 MG in DEXTROSE 5%-WATER 250 ML IV SCH ×2 (01:12→10:17)
[2018-05-02] MEDS: IPRATROPIUM/ALBUTEROL 0.5-2.5 MG/3 ML AMPUL NEB SCH ×4 (01:50→21:13)
[2018-05-02 04:49] LABS: HEMATOCRIT 30.1 % (37.9-51.0); HEMOGLOBIN 10.8 g/dL (13.5-17.0); MEAN CORPUSCULAR HEMOGLOBIN 34.5 pg (27.0-33.4); MEAN CORPUSCULAR HGB CONC 35.8 g/dL (32.0-36.0); MEAN CORPUSCULAR VOLUME 96 fl (80-97); PLATELET COUNT 416 10^3/uL (150-450); RED BLOOD COUNT 3.12 10^6/uL (4.35-5.55); RED CELL DISTRIBUTION WIDTH 14.1 % (11.5-14.0); WHITE BLOOD COUNT 8.1 10^3/uL (4.0-10.5)
[2018-05-02] MEDS: NORMAL SALINE 1000 ML 1,000 ML IV PRN (06:55)
[2018-05-02 10:15] LABS: VANCOMYCIN,TROUGH 8.6 ug/mL (5.0-20.0)
[2018-05-02] MEDS: ENOXAPARIN SODIUM INJ 80 MG/0.8 ML DISP.SYRIN SUBCUT SCH ×2 (10:18→21:32)
[2018-05-02] MEDS: AZITHROMYCIN 250 MG TABLET PO SCH (10:18)
[2018-05-02 13:35] LABS: APPEARANCE,URINE CLEAR; BILIRUBIN,URINE NEGATIVE (NEGATIVE); COLOR,URINE YELLOW; GLUCOSE, URINE 150 mg/dL (NEGATIVE); KETONES,URINE NEGATIVE (NEGATIVE); LEUKOCYTE ESTERASE,URINE NEGATIVE (NEGATIVE); NITRITE,URINE NEGATIVE (NEGATIVE); PROTEIN,URINE NEGATIVE (NEGATIVE); URINE SPECIFIC GRAVITY 1.009; UROBILINOGEN,URINE NEGATIVE mg/dL (<2.0)
--- NOTE | 2018-05-02 16:18 | PDOC PROGRESS REPORT ---
Subjective Progress Note for:: 05/02/18 Subjective:: Patient was seen by the bedside he was admitted for the management of thick- walled cavitary lesion in the left lung apex also found was pulmonary embolism. Patient is an active smoker, the combination of PE with a cavitary lesion next malignancy is suspected presently on isolation to rule out TB though unlikely. Tissue diagnosis would be needed, to rule out malignancy, the lesion is the apex of the left lung, bronchoscopy would not be ideal to reach this lesion ,CT Guided needle biopsy will be needed Reason For Visit: PE, LUNG MASS, PNEUMONIA Physical Exam Vital Signs: Temp Pulse Resp BP Pulse Ox 99.5 F 85 18 139/82 H 98 05/02/18 12:25 05/02/18 13:40 05/02/18 13:40 05/02/18 12:25 05/02/18 13:40 Pulse Oximeter Continuous Start: 04/30/18 02: 42 Freq: RTQ4 Status: Active Document 05/02/18 13:40 [facility] (Rec: 05/02/18 13:51 [facility] [email or web address]) Pulse Oximetry Assessment Oxygen Saturation (92-100) 98 Oxygen Delivery Method Room Air Fraction of Inspired Oxygen (FIO2) 21 Equipment Usage Initial Set Up Continuous SpO2 Machine # 14 Intake & Output 05/01/18 05/02/18 05/03/18 06:59 06:59 06:59 Intake Total 2733 4686 591 Output Total 6 Balance 2733 4680 591 Weight 67 kg 67.9 kg General appearance: PRESENT: no acute distress Eye exam: PRESENT: PERRLA Respiratory exam: PRESENT: rhonchi Cardiovascular exam: PRESENT: +S1, +S2 GI/Abdominal exam: PRESENT: soft Neurological exam: PRESENT: alert Results Laboratory Results: 05/02/18 03:50 05/02/18 09:25 05/02/18 05/02/18 05/02/18 03:50 09:25 09:30 WBC 8.1 RBC 3.12 L Hgb 10.8 L Hct 30.1 L MCV 96 MCH 34.5 H MCHC 35.8 RDW 14.1 H Plt Count 416 Creatinine 0.60 Est GFR ( Amer) > 60 Est GFR (Non-Af Amer) > 60 Urine Color Urine Appearance Urine pH Ur Specific [place] Urine Protein Urine Glucose (UA) Urine Ketones Urine Blood Urine Nitrite Ur Leukocyte Esterase Urine WBC (Auto) Urine RBC (Auto) Stool Occult Blood NEGATIVE 05/02/18 09:30 WBC RBC Hgb Hct MCV MCH MCHC RDW Plt Count Creatinine Est GFR ( Amer) Est GFR (Non-Af Amer) Urine Color YELLOW Urine Appearance CLEAR Urine pH 6.0 Ur Specific [place] 1.009 Urine Protein NEGATIVE Urine Glucose (UA) 150 H Urine Ketones NEGATIVE Urine Blood NEGATIVE Urine Nitrite NEGATIVE Ur Leukocyte Esterase NEGATIVE Urine WBC (Auto) 1 Urine RBC (Auto) 0 Stool Occult Blood Impressions: Chest X-Ray 04/29/18 20:35 FINDINGS/IMPRESSION: Normal cardiomediastinal silhouette. Pulmonary vasculature is unremarkable. Cavitary lesion within the left apex, better seen on same-day CT scan. Patchy opacities surrounding the left upper and midlung zone. Right lung is clear. No pleural effusion or pneumothorax is seen. No acute osseous findings. Chest/Abdomen CTA 04/29/18 23:15 IMPRESSION: 1. Acute pulmonary embolism involving the left main pulmonary artery extending into the left lower lumbar segmental branches. No evidence of right heart strain. 2. 2 distinct thick-walled cavitary lesion centered within the left lung apex, as stated above. Differential diagnosis includes infectious, neoplastic, inflammatory, and autoimmune processes. Correlate with clinical history. 3. Mediastinal left hilar adenopathy. Assessment & Plan - Diagnosis (1) Pulmonary cavitary lesion Is this a current diagnosis for this admission?: Yes (2) Pulmonary embolism Qualifiers: Pulmonary embolism type: other Chronicity: acute Acute cor pulmonale presence: without acute cor pulmonale Qualified Code(s): I26.99 - Other pulmonary embolism without acute cor pulmonale Is this a current diagnosis for this admission?: Yes (3) Tobacco abuse Is this a current diagnosis for this admission?: Yes
[2018-05-02] MEDS: VANCOMYCIN HCL 1,250 MG in DEXTROSE 5%-WATER 250 ML IV SCH (17:32)
[2018-05-03] MEDS: VANCOMYCIN HCL 1,250 MG in DEXTROSE 5%-WATER 250 ML IV SCH ×3 (01:59→19:02)
[2018-05-03] MEDS: IPRATROPIUM/ALBUTEROL 0.5-2.5 MG/3 ML AMPUL NEB SCH ×4 (02:43→19:49)
[2018-05-03] MEDS: NORMAL SALINE 1000 ML 1,000 ML IV PRN ×2 (06:52→21:20)
[2018-05-03] MEDS: ENOXAPARIN SODIUM INJ 80 MG/0.8 ML DISP.SYRIN SUBCUT SCH ×2 (09:31→21:25)
[2018-05-03] MEDS: AZITHROMYCIN 250 MG TABLET PO SCH (09:32)
[2018-05-03 18:19] LABS: VANCOMYCIN,TROUGH 13.9 ug/mL (5.0-20.0)
--- NOTE | 2018-05-03 20:49 | PDOC PROGRESS REPORT ---
Subjective Progress Note for:: 05/03/18 Subjective:: The CT scan guided biopsy of the lung is not done yet Reason For Visit: PE, LUNG MASS, PNEUMONIA Physical Exam Vital Signs: Temp Pulse Resp BP Pulse Ox 99.5 F 80 18 141/84 H 97 05/03/18 07:46 05/03/18 14:00 05/03/18 13:54 05/03/18 07:46 05/03/18 15:49 Pulse Oximeter Continuous Start: 04/30/18 02: 42 Freq: RTQ4 Status: Active Document 05/03/18 15:49 [facility] (Rec: 05/03/18 15:49 [facility] [email or web address]) Pulse Oximetry Assessment Oxygen Saturation (92-100) 97 Oxygen Delivery Method Room Air Fraction of Inspired Oxygen (FIO2) 21 Equipment Usage Equipment in Use Continuous SpO2 Machine # 14 Intake & Output 05/02/18 05/03/18 05/04/18 06:59 06:59 06:59 Intake Total 4686 3941 1210 Output Total 6 Balance 4680 3941 1210 Weight 67.9 kg 67.7 kg General appearance: PRESENT: no acute distress Eye exam: PRESENT: PERRLA Respiratory exam: PRESENT: decreased breath sounds Cardiovascular exam: PRESENT: +S1, +S2 GI/Abdominal exam: PRESENT: soft Neurological exam: PRESENT: alert Results Laboratory Results: 05/02/18 03:50 05/03/18 17:45 05/03/18 17:45 Creatinine 0.54 Est GFR ( Amer) > 60 Est GFR (Non-Af Amer) > 60 05/02/18 09:00 Sputum AFB Smear Concentration - Final 05/02/18 09:00 Sputum Acid Fast Bacilli Smear - Final 04/30/18 05:30 Blood Blood Culture - Final Staphylococcus Epidermidis Impressions: Chest X-Ray 04/29/18 20:35 FINDINGS/IMPRESSION: Normal cardiomediastinal silhouette. Pulmonary vasculature is unremarkable. Cavitary lesion within the left apex, better seen on same-day CT scan. Patchy opacities surrounding the left upper and midlung zone. Right lung is clear. No pleural effusion or pneumothorax is seen. No acute osseous findings. Chest/Abdomen CTA 04/29/18 23:15 IMPRESSION: 1. Acute pulmonary embolism involving the left main pulmonary artery extending into the left lower lumbar segmental branches. No evidence of right heart strain. 2. 2 distinct thick-walled cavitary lesion centered within the left lung apex, as stated above. Differential diagnosis includes infectious, neoplastic, inflammatory, and autoimmune processes. Correlate with clinical history. 3. Mediastinal left hilar adenopathy. Assessment & Plan - Diagnosis (1) Pulmonary cavitary lesion Is this a current diagnosis for this admission?: Yes (2) Pulmonary embolism Qualifiers: Pulmonary embolism type: other Chronicity: acute Acute cor pulmonale presence: without acute cor pulmonale Qualified Code(s): I26.99 - Other pulmonary embolism without acute cor pulmonale Is this a current diagnosis for this admission?: Yes (3) Tobacco abuse Is this a current diagnosis for this admission?: Yes (4) Alcohol abuse Is this a current diagnosis for this admission?: Yes
[2018-05-04] MEDS: VANCOMYCIN HCL 1,250 MG in DEXTROSE 5%-WATER 250 ML IV SCH ×4 (01:52→17:17)
[2018-05-04] MEDS: IPRATROPIUM/ALBUTEROL 0.5-2.5 MG/3 ML AMPUL NEB SCH ×4 (02:02→20:26)
[2018-05-04 05:47] LABS: HEMATOCRIT 30.5 % (37.9-51.0); HEMOGLOBIN 10.7 g/dL (13.5-17.0); MEAN CORPUSCULAR HEMOGLOBIN 34.2 pg (27.0-33.4); MEAN CORPUSCULAR HGB CONC 35.1 g/dL (32.0-36.0); MEAN CORPUSCULAR VOLUME 98 fl (80-97); PLATELET COUNT 407 10^3/uL (150-450); RED BLOOD COUNT 3.13 10^6/uL (4.35-5.55); RED CELL DISTRIBUTION WIDTH 14.1 % (11.5-14.0); WHITE BLOOD COUNT 8.9 10^3/uL (4.0-10.5)
[2018-05-04] MEDS: ENOXAPARIN SODIUM INJ 80 MG/0.8 ML DISP.SYRIN SUBCUT SCH ×2 (10:27→20:09)
[2018-05-04] MEDS: AZITHROMYCIN 250 MG TABLET PO SCH (10:34)
[2018-05-04] MEDS ORDERED: LIDOCAINE 1% INJ-PF (10 MG/ML) 30 ML SDV ONE (14:41)
--- NOTE | 2018-05-04 16:27 | PDOC CONSULTATION ---
Consultation Consult Date: 05/04/18 Consult reason:: need IV access History of Present Illness Admission Date/PCP: 04/30/18 02:48 СВЕТЛАНА SANABRIA MD History of Present Illness: ELIZABETH JOHNS is a 58 year old male in need if IV access for medication and IV fluids. Past Medical History Cardiac Medical History: Reports: Hypertension Psychiatric Medical History: Reports: Tobacco Dependency Denies: Depression Past Surgical History Past Surgical History: Reports: None Social History Lives with: Family Smoking Status: Current Every Day Smoker Cigarettes Packs Per Day: 20 Number of Years Smokin Last Time Smoked: 04/25/18 Frequency of Alcohol Use: Heavy Drugs: None Hx Prescription Drug Abuse: No - Advance Directive Resuscitation Status: Full Code Family History Family History: Reviewed & Not Pertinent Parental Family History Reviewed: No Children Family History Reviewed: No Sibling(s) Family History Reviewed.: No Medication/Allergy Home Medications: No Home Medications 04/30/18 Allergies/Adverse Reactions: Penicillins Allergy (Severe, Verified 04/29/18 19:26) rash Physical Exam Vital Signs: Temp Pulse Resp BP Pulse Ox 99.5 F 70 16 133/84 H 96 05/04/18 11:13 05/04/18 14:14 05/04/18 14:14 05/04/18 11:13 05/04/18 14:14 Pulse Oximeter Continuous Start: 04/30/18 02: 42 Freq: RTQ4 Status: Active Document 05/04/18 11:32 [facility] (Rec: 05/04/18 11:32 [facility] [email or web address]) Pulse Oximetry Assessment Oxygen Saturation (92-100) 96 Oxygen Delivery Method Room Air Fraction of Inspired Oxygen (FIO2) 21 Equipment Usage Equipment in Use Continuous SpO2 Machine # 14 Intake & Output 05/03/18 05/04/18 05/05/18 06:59 06:59 06:59 Intake Total 3941 2710 1840 Balance 3941 2710 1840 Weight 67.7 kg 67.7 kg General appearance: PRESENT: no acute distress Head exam: PRESENT: atraumatic Eye exam: PRESENT: EOMI Mouth exam: PRESENT: neck supple Respiratory exam: PRESENT: clear to auscultation lena Cardiovascular exam: PRESENT: RRR GI/Abdominal exam: PRESENT: soft Results Laboratory Results: 05/04/18 04:34 05/03/18 17:45 05/03/18 05/04/18 17:45 04:34 WBC 8.9 RBC 3.13 L Hgb 10.7 L Hct 30.5 L MCV 98 H MCH 34.2 H MCHC 35.1 RDW 14.1 H Plt Count 407 Creatinine 0.54 Est GFR ( Amer) > 60 Est GFR (Non-Af Amer) > 60 04/30/18 03:15 Blood Blood Culture - Final Staphylococcus Hominis 04/30/18 05:30 Sputum Gram Stain - Final 04/30/18 05:30 Sputum Sputum Culture - Final Stenotrophomonas Maltophilia Normal [place] 05/02/18 09:00 Sputum AFB Smear Concentration - Final 05/02/18 09:00 Sputum Acid Fast Bacilli Smear - Final 04/30/18 05:30 Blood Blood Culture - Final Staphylococcus Epidermidis Impressions: Chest X-Ray 04/29/18 20:35 FINDINGS/IMPRESSION: Normal cardiomediastinal silhouette. Pulmonary vasculature is unremarkable. Cavitary lesion within the left apex, better seen on same-day CT scan. Patchy opacities surrounding the left upper and midlung zone. Right lung is clear. No pleural effusion or pneumothorax is seen. No acute osseous findings. Chest/Abdomen CTA 04/29/18 23:15 IMPRESSION: 1. Acute pulmonary embolism involving the left main pulmonary artery extending into the left lower lumbar segmental branches. No evidence of right heart strain. 2. 2 distinct thick-walled cavitary lesion centered within the left lung apex, as stated above. Differential diagnosis includes infectious, neoplastic, inflammatory, and autoimmune processes. Correlate with clinical history. 3. Mediastinal left hilar adenopathy. Assessment & Plan - Diagnosis (1) Need for intravenous access Is this a current diagnosis for this admission?: Yes - Plan Summary Plan Summary: A/ difficult peripheral IV access need of IV access for administration of IV medications and IV fluids P/ Plan placement of central venous triple lumen catheter Chest xray postprocedural
--- NOTE | 2018-05-04 16:30 | Operative Report ---
Nonrecallable Operative Report DATE OF SURGERY: 05/04/18 PREOPERATIVE DIAGNOSIS: need IV access for medications and fluids POSTOPERATIVE DIAGNOSIS: same OPERATION: attempted rigth subclavian vein CVL placement. right internal jugular vein triple lumen catheter placement SURGEON: BRIDGETTE GEIGER ANESTHESIA: Local TISSUE REMOVED OR ALTERED: n/a COMPLICATIONS: n/a ESTIMATED BLOOD LOSS: < 5 mL INTRAOPERATIVE FINDINGS: difficult insertion of guidewire via right subclavian abisai PROCEDURE: see dictation
--- NOTE | 2018-05-04 16:47 | RADIOLOGY REPORT (SQ) ---
EXAM DESCRIPTION: CHEST SINGLE VIEW COMPLETED DATE/TIME: 05/04/2018 4:27 pm REASON FOR STUDY: central line insertion COMPARISON: 04/30/2018 EXAM PARAMETERS: NUMBER OF VIEWS: One view. TECHNIQUE: Single frontal radiographic view of the chest acquired. RADIATION DOSE: NA LIMITATIONS: None. FINDINGS: LUNGS AND PLEURA: Findings of COPD, stable. Since the previous examination, extensive co nfluent patchy density in the previously identified cavitary lesions in the left apex--left upper lob e. Considerations for these findings include inflammatory/infectious etiologies, TB, parasitic or fu ngal etiologies, as well as other etiologies including neoplasm. The right lung is stable in appeara nce. No pleural effusion. MEDIASTINUM AND HILAR STRUCTURES: No masses. Contour normal. HEART AND VASCULAR STRUCTURES: Heart normal in size. Normal vasculature. BONES: No acute findings. HARDWARE: Interval placement of right internal jugular venous line with the tip in the region of sup erior vena cava. OTHER: No other significant finding. IMPRESSION: 1. Since the previous examination dated 04/29/2018, new extensive confluent densities in the area of previously identified left apex--left upper lobe cavitary lesions. Considerations for t hese findings include inflammatory/infectious etiologies, TB, fungal/parasitic etiologies, with neopl asm not entirely excluded. 2. Interval placement of right internal jugular venous line. No evidence of pneumothorax. 3. COPD. TECHNICAL DOCUMENTATION: JOB ID: [id number] [employer]- All Rights Reserved Reading location - IP/workstation name: [email or web address]
[2018-05-04] MEDS: NORMAL SALINE 1000 ML 1,000 ML IV PRN (17:15)
--- NOTE | 2018-05-04 19:40 | OPERATIVE REPORT E ---
Operative Report NAME: ELIZABETH JOHNS : 1960 AGE: 58Y DATE OF SURGERY: 05/04/2018 ROOM: 301 PREOPERATIVE DIAGNOSIS: NEED FOR IV ACCESS FOR ADMINISTRATION OF MEDICATION AND DRUGS. POSTOPERATIVE DIAGNOSIS: NEED FOR IV ACCESS FOR ADMINISTRATION OF MEDICATION AND DRUGS. OPERATION: 1. Attempted placement of right subclavian vein triple-lumen central venous line. 2. Placement of right internal jugular vein triple-lumen central venous line. SURGEON: BRIDGETTE GEIGER M.D. GLOBAL TECHNICAL WRITER: None. ESTIMATED BLOOD LOSS: Minimal, less than 5 mL. COMPLICATIONS: None. ANESTHESIA: Local, about 15 mL of 1% lidocaine without epinephrine. INDICATION AND FINDINGS: This is a 58-year-old male who has been admitted because of coughing, lung mass and possible pulmonary embolism, who requires placement of a central venous line for administration of medication and drugs. PROCEDURE: The procedure was done at the bedside. The patient was placed in [place] position and a towel was placed between the scapula so as to extend his chest and neck. The right side of the neck was shaved, prepped and draped in the usual fashion. The area just below the midportion of the clavicle was infiltrated with lidocaine and a 16-gauge needle was used to cannulate multiple times the subclavian vein. This was cannulated with good blood return, but the guidewire could not advance further than 20 cm. At this point, this procedure was aborted. The right IJ approach was performed by initially infiltrating with lidocaine the apex of the right anterior sternocleidomastoid muscle triangle. Following this, a small 21-gauge fine needle was inserted, pointed toward the right internal jugular vein, which was easily identified. The needle was removed, replaced by a 16-gauge needle, which easily identified the right internal jugular vein. At this point, a guidewire was inserted through the needle into through the right internal jugular vein and superior vena cava. The needle was removed. The insertion point of the guidewire was enlarged with a tissue dilator, which was removed, followed by insertion of a triple-lumen central venous line catheter up to about 16 cm. The guidewire was removed. The triple-lumen catheter was then aspirated and flushed with normal saline solution without difficulty. The catheter was then secured to the skin with silk sutures. Sterile dressings were then applied. The patient tolerated the procedure well. A chest x-ray was obtained to confirm good position of the line. DICTATING PHYSICIAN: BRIDGETTE GEIGER M.D. [id number] PHY#: [id number] ID: [id number] JOB#: [id number] ACCT: [id number] cc:BRIDGETTE GEIGER M.D. > MTDD
--- NOTE | 2018-05-04 21:11 | PDOC PROGRESS REPORT ---
Subjective Progress Note for:: 05/04/18 Subjective:: I had a long discussion with the patient and his family the differential diagnosis for the cavitation in the apices of the left long is long including infectious, noninfectious, malignancy. He has risk factors for malignancy and also infectious etiology is a heavy smoker and also an alcoholic, cavitation of the long is not uncommon in alcoholics, consultation for pulmonary is ordered for guidance going forward Reason For Visit: PE, LUNG MASS, PNEUMONIA Physical Exam Vital Signs: Temp Pulse Resp BP Pulse Ox 99.6 F 74 16 138/83 H 95 05/04/18 19:43 05/04/18 20:26 05/04/18 20:26 05/04/18 19:43 05/04/18 20:26 Pulse Oximeter Continuous Start: 04/30/18 02: 42 Freq: RTQ4 Status: Active Document 05/04/18 20:26 CMI (Rec: 05/04/18 20:27 CMI [id number]) Pulse Oximetry Assessment Oxygen Saturation (92-100) 95 Oxygen Delivery Method Room Air Fraction of Inspired Oxygen (FIO2) 21 Equipment Usage Equipment in Use Continuous SpO2 Machine # 14 Intake & Output 05/03/18 05/04/18 05/05/18 06:59 06:59 06:59 Intake Total 3941 2710 2567 Balance 3941 2710 2567 Weight 67.7 kg 67.7 kg General appearance: PRESENT: no acute distress Eye exam: PRESENT: PERRLA Respiratory exam: PRESENT: decreased breath sounds Cardiovascular exam: PRESENT: +S1, +S2 GI/Abdominal exam: PRESENT: soft Neurological exam: PRESENT: alert Results Laboratory Results: 05/04/18 04:34 05/03/18 17:45 05/04/18 04:34 WBC 8.9 RBC 3.13 L Hgb 10.7 L Hct 30.5 L MCV 98 H MCH 34.2 H MCHC 35.1 RDW 14.1 H Plt Count 407 04/30/18 03:15 Blood Blood Culture - Final Staphylococcus Hominis 04/30/18 05:30 Sputum Gram Stain - Final 04/30/18 05:30 Sputum Sputum Culture - Final Stenotrophomonas Maltophilia Normal [place] Impressions: Chest/Abdomen CTA 04/29/18 23:15 IMPRESSION: 1. Acute pulmonary embolism involving the left main pulmonary artery extending into the left lower lumbar segmental branches. No evidence of right heart strain. 2. 2 distinct thick-walled cavitary lesion centered within the left lung apex, as stated above. Differential diagnosis includes infectious, neoplastic, inflammatory, and autoimmune processes. Correlate with clinical history. 3. Mediastinal left hilar adenopathy. Chest X-Ray 05/04/18 00:00 IMPRESSION: 1. Since the previous examination dated 04/29/2018, new extensive confluent densities in the area of previously identified left apex--left upper lobe cavitary lesions. Considerations for these findings include inflammatory/ infectious etiologies, TB, fungal/parasitic etiologies, with neoplasm not entirely excluded. 2. Interval placement of right internal jugular venous line. No evidence of pneumothorax. 3. COPD. Assessment & Plan - Diagnosis (1) Pulmonary cavitary lesion Is this a current diagnosis for this admission?: Yes (2) Pulmonary embolism Qualifiers: Pulmonary embolism type: other Chronicity: acute Acute cor pulmonale presence: without acute cor pulmonale Qualified Code(s): I26.99 - Other pulmonary embolism without acute cor pulmonale Is this a current diagnosis for this admission?: Yes (3) Tobacco abuse Is this a current diagnosis for this admission?: Yes
[2018-05-04] MEDS ORDERED: LEVOFLOXACIN 500 MG TABLET PO SCH (22:00)
[2018-05-04 22:23] LABS: APPEARANCE,URINE CLEAR; BILIRUBIN,URINE NEGATIVE (NEGATIVE); COLOR,URINE YELLOW; GLUCOSE, URINE NEGATIVE (NEGATIVE); KETONES,URINE NEGATIVE (NEGATIVE); LEUKOCYTE ESTERASE,URINE NEGATIVE (NEGATIVE); NITRITE,URINE NEGATIVE (NEGATIVE); PROTEIN,URINE NEGATIVE (NEGATIVE); URINE SPECIFIC GRAVITY 1.013; UROBILINOGEN,URINE NEGATIVE mg/dL (<2.0)
--- NOTE | 2018-05-04 22:56 | CONSULTATION REPORT E ---
Consultation Report NAME: ELIZABETH JOHNS : 1960 AGE: 58Y DATE: 05/04/2018 ROOM: 301 A TO: STEPH ABARCA M.D. FROM: СВЕТЛАНА SANABRIA M.D. Requesting Physician HISTORY OF PRESENT ILLNESS: The patient is a 58-year-old male who came in with increased shortness of breath, chest tightness on 04/29/2018, about 5 days ago. The patient was started on Lovenox for large PE and chest CT scan also showed cavitation, large, in the left lung apex. The patient was scheduled for a CT guided biopsy today and Lovenox subsequently was held, but canceled and had a central line placed in the right IJ. The patient complains of a history of coughing some yellow-green phlegm which started about 3-4 weeks ago or longer. Denies any fever, chills. No hemoptysis. The patient claims that he smokes about 1 pack to one and half pack per day but quit for a few years and then came back. He drinks also almost every day and had quit also for about 10 years and had a relapse with alcohol drinking. Currently the patient is not severe shortness of breath, feeling relatively better. PAST MEDICAL HISTORY: Includes hypertension. SURGICAL HISTORY: None. SOCIAL HISTORY: He smokes every day about 1 pack a day to one and half a pack a day and drinks alcohol. FAMILY HISTORY: COPD, denies any malignancy. MEDICATIONS: Include oxycodone 5 mg every 6 hours, ibuprofen, Robaxin, and Percocet. ALLERGIES: PENICILLIN. REVIEW OF SYSTEMS: CONSTITUTIONAL: No fever, chills. No night sweats. EYES, EARS, NOSE, AND THROAT: Denies any visual changes. Denies blurry vision. Denies any nasal discharge or ear discharge. RESPIRATORY: Complained about chest tightness and shortness of breath prior to this admission. Complains about crisp cough with purulent sputum production. CARDIAC: Chest tightness and dyspnea on exertion. GASTROINTESTINAL: No nausea, vomiting, or abdominal pain. GENITOURINARY: No dysuria or hematuria. *------*. EXTREMITIES: No joint swelling, no cellulitis. PHYSICAL EXAMINATION: GENERAL: Patient is awake, alert, coherent, oriented x3. VITAL SIGNS: Temperature of 99.5 with a T-max of 99.8. On 05/02/2018, the patient's temperature spiked to 101 degrees Fahrenheit. On 04/30/2018, his temperature spiked to 100.7. Pulse 79, respiratory 16, saturation 96% on room air. EYES: No jaundice or pallor. EARS, NOSE, AND THROAT: No ear drainage. No nasal discharge. CHEST AND LUNGS: No wheezing, no rhonchi, no coarse crackles. CARDIOVASCULAR: S1, S2 distinct. Normal rate and regular rhythm. ABDOMEN: Flabby, positive bowel sounds, soft, nondistended, nontender. EXTREMITIES: No joint swelling, no cellulitis. LABORATORY DATA: CBC done today showed a white count of 8.9, it was 13.3 on admission; hemoglobin is 10.7; hematocrit is 30.5; platelet count is 407. The chemistry done 2 days ago showed sodium 130, potassium 3.8, chloride 101, CO2 is 33, BUN is 3, creatinine 0.52, glucose 107, calcium is 7.9. PT on admission was 16.3, INR is 1.25, PTT is 33.2. IMAGING STUDIES: Chest CT scan showed large cavitation involving the left upper lobe. A large blood clot in the left pulmonary artery. ASSESSMENT: 1. Acute pulmonary embolism, large, in the left pulmonary artery. Currently hemodynamically stable. Previously on Lovenox which provides some symptom relief. The patient needs to resume anticoagulation. The patient could deteriorate abruptly if off anticoagulation for awhile. 2. Cavitation involving the left upper lobe. Possible atypical bacterial infection such has atypical mycobacterium infection, possible fungal or due to Stenotrophomonas maltophilia. Malignancy could not be completely excluded. The cavitation is most likely atypical infection. MAC is high in the differential. Awaiting 3 sputum AFB which was collected for the last 3 days. 3. History of heavy smoking and alcohol abuse. PLAN/RECOMMENDATION: 1. We will resume Lovenox at 1 mg/kg q.12 hours. 2. We will hold bronchoscopy, we will hold lung biopsy at this time. The patient may decompensate quickly during or after lung biopsy, and we will not be able to anticoagulate the patient and we will not also be able to give thrombolytics if the patient becomes shocky. The patient is high risk for cardiac arrest if anticoagulation would be held for a long-timer. 3. We will start the patient on Levaquin 500 mg tablet p.o. daily. 4. May continue Levaquin for 2-3 weeks. 5. We will discontinue the azithromycin. 6. The patient will require pulmonary clinic follow up in 2-3 weeks following hospital discharge. May repeat the CT scan thereafter. 7. If the sputum AFB culture should become positive for AFB, the patient may require therapy thereafter. 8. Will follow. DICTATING PHYSICIAN: STEPH ABARCA MD,MARIO,MPH [id number] PHY#: [id number] ID: [id number] JOB#: [id number] ACCT: [id number] cc:STEPH ABARCA M.D. > MTDD
[2018-05-05] MEDS: VANCOMYCIN HCL 1,250 MG in DEXTROSE 5%-WATER 250 ML IV SCH ×3 (01:03→17:03)
[2018-05-05] MEDS: IPRATROPIUM/ALBUTEROL 0.5-2.5 MG/3 ML AMPUL NEB SCH ×4 (02:37→19:30)
[2018-05-05] MEDS: NORMAL SALINE 1000 ML 1,000 ML IV PRN ×3 (03:42→23:49)
[2018-05-05] MEDS: ENOXAPARIN SODIUM INJ 80 MG/0.8 ML DISP.SYRIN SUBCUT SCH ×2 (09:27→22:37)
--- NOTE | 2018-05-05 17:25 | PDOC PROGRESS REPORT ---
Subjective Progress Note for:: 05/05/18 Subjective:: Patient was seen by pulmonary Reason For Visit: PE, LUNG MASS, PNEUMONIA Physical Exam Vital Signs: Temp Pulse Resp BP Pulse Ox 99.8 F 84 16 130/82 H 93 05/05/18 11:13 05/05/18 14:00 05/05/18 11:13 05/05/18 11:13 05/05/18 12:01 Pulse Oximeter Continuous Start: 04/30/18 02: 42 Freq: RTQ4 Status: Active Document 05/05/18 12:01 HCR (Rec: 05/05/18 12:02 HCR [email or web address]) Pulse Oximetry Assessment Oxygen Saturation (92-100) 93 Oxygen Delivery Method Room Air Equipment Usage Equipment in Use Continuous SpO2 Machine # 14 Intake & Output 05/04/18 05/05/18 05/06/18 06:59 06:59 06:59 Intake Total 2710 4617 1841 Balance 2710 4617 1841 Weight 67.7 kg 66.3 kg General appearance: PRESENT: no acute distress Eye exam: PRESENT: PERRLA Respiratory exam: PRESENT: rhonchi Cardiovascular exam: PRESENT: +S1, +S2 Neurological exam: PRESENT: alert Results Laboratory Results: 05/04/18 04:34 05/05/18 14:10 05/04/18 05/05/18 05/05/18 21:52 01:20 14:10 Creatinine 0.62 Est GFR ( Amer) > 60 Est GFR (Non-Af Amer) > 60 Urine Color YELLOW Urine Appearance CLEAR Urine pH 6.0 Ur Specific [place] 1.013 Urine Protein NEGATIVE Urine Glucose (UA) NEGATIVE Urine Ketones NEGATIVE Urine Blood NEGATIVE Urine Nitrite NEGATIVE Ur Leukocyte Esterase NEGATIVE Urine WBC (Auto) 1 Urine RBC (Auto) 1 Stool Occult Blood NEGATIVE Impressions: Chest/Abdomen CTA 04/29/18 23:15 IMPRESSION: 1. Acute pulmonary embolism involving the left main pulmonary artery extending into the left lower lumbar segmental branches. No evidence of right heart strain. 2. 2 distinct thick-walled cavitary lesion centered within the left lung apex, as stated above. Differential diagnosis includes infectious, neoplastic, inflammatory, and autoimmune processes. Correlate with clinical history. 3. Mediastinal left hilar adenopathy. Chest X-Ray 05/04/18 00:00 IMPRESSION: 1. Since the previous examination dated 04/29/2018, new extensive confluent densities in the area of previously identified left apex--left upper lobe cavitary lesions. Considerations for these findings include inflammatory/ infectious etiologies, TB, fungal/parasitic etiologies, with neoplasm not entirely excluded. 2. Interval placement of right internal jugular venous line. No evidence of pneumothorax. 3. COPD. Assessment & Plan - Diagnosis (1) Pulmonary cavitary lesion Is this a current diagnosis for this admission?: Yes (2) Pulmonary embolism Qualifiers: Pulmonary embolism type: other Chronicity: acute Acute cor pulmonale presence: without acute cor pulmonale Qualified Code(s): I26.99 - Other pulmonary embolism without acute cor pulmonale Is this a current diagnosis for this admission?: Yes (3) Tobacco abuse Is this a current diagnosis for this admission?: Yes
--- NOTE | 2018-05-05 21:25 | PROGRESS NOTE E ---
Progress Note NAME: ELIZABETH JOHNS : 1960 AGE: 58Y DATE: 05/05/2018 ROOM: 301 SUBJECTIVE: The patient is a 58-year-old male who came with a large acute pulmonary embolism left lung associated with a large cavitation also left upper lobe. The patient was coughing yellow-green phlegm for 3-4 weeks prior to hospitalization. Recently started on Lovenox yesterday at 1 mg/kg sub-Q q.12. The patient tolerated it well. The patient was started on Levaquin as well 500 mg p.o. daily and changed 750 mg daily today. The patient tolerated the antibiotic well. Still receiving IV vancomycin and doing well. Denies any fever or chills. Denies any hemoptysis or increasing cough or purulent sputum production or chest pain, increasing cough, nor increased shortness of breath. Still coughing some yellow-green purulent sputum. Coughing intermittently. Gets short of breath after walking to the bathroom. OBJECTIVE: GENERAL: The patient is awake, alert, coherent, oriented x3. VITAL SIGNS: Temperature is 98.8 with a T-max of 99.8, the heart rate is 94, blood pressure 128/72, respiratory rate is 20, saturation is 90% on room air. EYES: No jaundice or pallor. EARS, NOSE, AND THROAT: No ear drainage noted. No nasal discharge. HEAD AND NECK: No scalp swelling or neck tenderness. CHEST AND LUNGS: No wheezing, no rhonchi, no coarse crackles. CARDIOVASCULAR: S1, S2 distinct. Normal rate and regular rhythm. ABDOMEN: Flabby, positive bowel sounds, soft, nondistended, nontender. EXTREMITIES: No joint swelling, no cellulitis. LABORATORY DATA: CBC done today showed a white count of 8.9, hemoglobin is 10.7, hematocrit is 38.5, platelet count 407. Chemistry done today showed sodium is 130, potassium 3.8, chloride 101, CO2 is 33, BUN is 3, creatinine is 0.52, glucose is 107, calcium is 7.9. ASSESSMENT: 1. ACUTE PULMONARY EMBOLISM, LEFT LUNG LARGE, LEFT PULMONARY ARTERY. Currently hemodynamically stable. 2. LARGE CAVITATION INVOLVING THE LEFT UPPER LOBE, POSSIBLE ATYPICAL INFECTION, CURRENTLY SPUTUM POSITIVE FOR STENOTROPHOMONAS MALTOPHILIA SENSITIVE TO LEVAQUIN. Prescribed oral Levaquin yesterday, appeared to tolerate it well. Malignancy could not be completely excluded. PLAN/RECOMMENDATION: 1. Continue antibiotics, Levaquin. 2. May consider changing to Xarelto 15 mg tablet p.o. b.i.d. for 21 days, to start the first dose 2 hours prior to the next Lovenox dose. 3. Recommend discontinuing Lovenox once the patient is started on Xarelto. 4. Recommend pulmonary clinic follow up 6 weeks following hospital discharge. 5. I will sign off tonight. DICTATING PHYSICIAN: STEPH ABARCA MD,MARIO,MPH [id number] PHY#: [id number] 2019 ID: [id number] JOB#: [id number] ACCT: [id number] cc: > MTDD
[2018-05-05] MEDS: LEVOFLOXACIN 750 MG TABLET PO SCH (22:37)
[2018-05-06] MEDS: IPRATROPIUM/ALBUTEROL 0.5-2.5 MG/3 ML AMPUL NEB SCH ×4 (01:39→19:21)
[2018-05-06] MEDS: VANCOMYCIN HCL 1,250 MG in DEXTROSE 5%-WATER 250 ML IV SCH ×3 (02:28→17:48)
[2018-05-06] MEDS: ENOXAPARIN SODIUM INJ 80 MG/0.8 ML DISP.SYRIN SUBCUT SCH ×2 (10:28→21:43)
[2018-05-06] MEDS: NORMAL SALINE 1000 ML 1,000 ML IV PRN (10:30)
--- NOTE | 2018-05-06 18:40 | PDOC PROGRESS REPORT ---
Subjective Progress Note for:: 05/06/18 Subjective:: Patient was seen by the bedside, he has pulmonary embolism, he would need anticoagulant for about 6 months, he has medical insurance, he has cavitary lesion, presently on IV antibiotic. He was seen by pulmonary, the plan is for him to be discharged on p.o. antibiotic and for close follow outpatient with pulmonary Reason For Visit: PE, LUNG MASS, PNEUMONIA Physical Exam Vital Signs: Temp Pulse Resp BP Pulse Ox 98.8 F 87 12 139/78 H 95 05/06/18 15:06 05/06/18 15:06 05/06/18 15:06 05/06/18 15:06 05/06/18 16:00 Pulse Oximeter Continuous Start: 04/30/18 02: 42 Freq: RTQ4 Status: Active Document 05/06/18 16:00 HCR (Rec: 05/06/18 17:52 HCR [email or web address]) Pulse Oximetry Assessment Oxygen Saturation (92-100) 95 Oxygen Delivery Method Room Air Fraction of Inspired Oxygen (FIO2) 21 Equipment Usage Equipment in Use Continuous SpO2 Machine # 14 Intake & Output 05/05/18 05/06/18 05/07/18 06:59 06:59 06:59 Intake Total 4617 4030 3030 Balance 4617 4030 3030 Weight 66.3 kg 67.3 kg General appearance: PRESENT: no acute distress Eye exam: PRESENT: PERRLA Respiratory exam: PRESENT: clear to auscultation lena Cardiovascular exam: PRESENT: +S1, +S2 Results Laboratory Results: 05/04/18 04:34 05/05/18 14:10 Impressions: Chest/Abdomen CTA 04/29/18 23:15 IMPRESSION: 1. Acute pulmonary embolism involving the left main pulmonary artery extending into the left lower lumbar segmental branches. No evidence of right heart strain. 2. 2 distinct thick-walled cavitary lesion centered within the left lung apex, as stated above. Differential diagnosis includes infectious, neoplastic, inflammatory, and autoimmune processes. Correlate with clinical history. 3. Mediastinal left hilar adenopathy. Chest X-Ray 05/04/18 00:00 IMPRESSION: 1. Since the previous examination dated 04/29/2018, new extensive confluent densities in the area of previously identified left apex--left upper lobe cavitary lesions. Considerations for these findings include inflammatory/ infectious etiologies, TB, fungal/parasitic etiologies, with neoplasm not entirely excluded. 2. Interval placement of right internal jugular venous line. No evidence of pneumothorax. 3. COPD. Assessment & Plan - Diagnosis (1) Pulmonary cavitary lesion Is this a current diagnosis for this admission?: Yes (2) Pulmonary embolism Qualifiers: Pulmonary embolism type: other Chronicity: acute Acute cor pulmonale presence: without acute cor pulmonale Qualified Code(s): I26.99 - Other pulmonary embolism without acute cor pulmonale Is this a current diagnosis for this admission?: Yes (3) Tobacco abuse Is this a current diagnosis for this admission?: Yes (4) Alcohol abuse Is this a current diagnosis for this admission?: Yes
[2018-05-06] MEDS: LEVOFLOXACIN 750 MG TABLET PO SCH (21:43)
[2018-05-07] MEDS: IPRATROPIUM/ALBUTEROL 0.5-2.5 MG/3 ML AMPUL NEB SCH ×4 (02:06→19:40)
[2018-05-07] MEDS: VANCOMYCIN HCL 1,250 MG in DEXTROSE 5%-WATER 250 ML IV SCH ×3 (02:16→17:55)
[2018-05-07 06:18] LABS: HEMATOCRIT 31.3 % (37.9-51.0); HEMOGLOBIN 10.9 g/dL (13.5-17.0); MEAN CORPUSCULAR HEMOGLOBIN 33.9 pg (27.0-33.4); MEAN CORPUSCULAR HGB CONC 34.9 g/dL (32.0-36.0); MEAN CORPUSCULAR VOLUME 97 fl (80-97); PLATELET COUNT 294 10^3/uL (150-450); RED BLOOD COUNT 3.23 10^6/uL (4.35-5.55); RED CELL DISTRIBUTION WIDTH 14.5 % (11.5-14.0); WHITE BLOOD COUNT 8.9 10^3/uL (4.0-10.5)
[2018-05-07 06:43] LABS: ANION GAP 10 (5-19); BLOOD UREA NITROGEN 5 mg/dL (7-20); CALCIUM 8.9 mg/dL (8.4-10.2); CARBON DIOXIDE 25 mmol/L (22-30); CHLORIDE 100 mmol/L (98-107); GLUCOSE 89 mg/dL (75-110); SODIUM 134.7 mmol/L (137-145)
[2018-05-07] MEDS: ENOXAPARIN SODIUM INJ 80 MG/0.8 ML DISP.SYRIN SUBCUT SCH ×2 (10:06→22:07)
--- NOTE | 2018-05-07 20:03 | PDOC PROGRESS REPORT ---
Subjective Progress Note for:: 05/07/18 Subjective:: Patient was seen by the bedside, history of cavitary pneumonia Reason For Visit: PE, LUNG MASS, PNEUMONIA Physical Exam Vital Signs: Temp Pulse Resp BP Pulse Ox 98.7 F 91 14 128/78 H 97 05/07/18 15:07 05/07/18 15:07 05/07/18 15:07 05/07/18 15:07 05/07/18 16:01 Pulse Oximeter Continuous Start: 04/30/18 02: 42 Freq: RTQ4 Status: Complete Document 05/06/18 16:00 HCR (Rec: 05/06/18 17:52 HCR [email or web address]) Pulse Oximetry Assessment Oxygen Saturation (92-100) 95 Oxygen Delivery Method Room Air Fraction of Inspired Oxygen (FIO2) 21 Equipment Usage Equipment in Use Continuous SpO2 Machine # 14 Intake & Output 05/06/18 05/07/18 05/08/18 06:59 06:59 06:59 Intake Total 4030 5130 1552 Balance 4030 5130 1552 Weight 67.3 kg 66.4 kg General appearance: PRESENT: no acute distress Eye exam: PRESENT: PERRLA Respiratory exam: PRESENT: rhonchi Cardiovascular exam: PRESENT: +S1, +S2 GI/Abdominal exam: PRESENT: soft Neurological exam: PRESENT: alert Results Laboratory Results: 05/07/18 05:18 05/07/18 05:18 05/07/18 05/07/18 05:18 05:18 WBC 8.9 RBC 3.23 L Hgb 10.9 L Hct 31.3 L MCV 97 MCH 33.9 H MCHC 34.9 RDW 14.5 H Plt Count 294 Sodium 134.7 L Potassium 4.0 Chloride 100 Carbon Dioxide 25 Anion Gap 10 BUN 5 L Creatinine 0.58 Est GFR ( Amer) > 60 Est GFR (Non-Af Amer) > 60 Glucose 89 Calcium 8.9 Impressions: Chest/Abdomen CTA 04/29/18 23:15 IMPRESSION: 1. Acute pulmonary embolism involving the left main pulmonary artery extending into the left lower lumbar segmental branches. No evidence of right heart strain. 2. 2 distinct thick-walled cavitary lesion centered within the left lung apex, as stated above. Differential diagnosis includes infectious, neoplastic, inflammatory, and autoimmune processes. Correlate with clinical history. 3. Mediastinal left hilar adenopathy. Chest X-Ray 05/04/18 00:00 IMPRESSION: 1. Since the previous examination dated 04/29/2018, new extensive confluent densities in the area of previously identified left apex--left upper lobe cavitary lesions. Considerations for these findings include inflammatory/ infectious etiologies, TB, fungal/parasitic etiologies, with neoplasm not entirely excluded. 2. Interval placement of right internal jugular venous line. No evidence of pneumothorax. 3. COPD. Assessment & Plan - Diagnosis (1) Pulmonary cavitary lesion Is this a current diagnosis for this admission?: Yes (2) Pulmonary embolism Qualifiers: Pulmonary embolism type: other Chronicity: acute Acute cor pulmonale presence: without acute cor pulmonale Qualified Code(s): I26.99 - Other pulmonary embolism without acute cor pulmonale Is this a current diagnosis for this admission?: Yes (3) Tobacco abuse Is this a current diagnosis for this admission?: Yes (4) Alcohol abuse Is this a current diagnosis for this admission?: Yes
[2018-05-07] MEDS: LEVOFLOXACIN 750 MG TABLET PO SCH (22:07)
[2018-05-08] MEDS: VANCOMYCIN HCL 1,250 MG in DEXTROSE 5%-WATER 250 ML IV SCH ×2 (02:05→09:36)
[2018-05-08] MEDS: IPRATROPIUM/ALBUTEROL 0.5-2.5 MG/3 ML AMPUL NEB SCH ×4 (02:08→19:56)
[2018-05-08] MEDS: ENOXAPARIN SODIUM INJ 80 MG/0.8 ML DISP.SYRIN SUBCUT SCH ×2 (09:35→21:00)
[2018-05-08 10:49] LABS: VANCOMYCIN,TROUGH 18.4 ug/mL (5.0-20.0)
[2018-05-08] MEDS: LEVOFLOXACIN 750 MG TABLET PO SCH (21:00)
--- NOTE | 2018-05-08 21:19 | PDOC PROGRESS REPORT ---
Subjective Progress Note for:: 05/08/18 Subjective:: Patient seen by the bedside Reason For Visit: PE, LUNG MASS, PNEUMONIA Physical Exam Vital Signs: Temp Pulse Resp BP Pulse Ox 99.0 F 84 16 118/67 95 05/08/18 20:11 05/08/18 20:11 05/08/18 20:11 05/08/18 20:11 05/08/18 20:11 Pulse Oximeter Continuous Start: 04/30/18 02: 42 Freq: RTQ4 Status: Complete Document 05/06/18 16:00 HCR (Rec: 05/06/18 17:52 HCR [email or web address]) Pulse Oximetry Assessment Oxygen Saturation (92-100) 95 Oxygen Delivery Method Room Air Fraction of Inspired Oxygen (FIO2) 21 Equipment Usage Equipment in Use Continuous SpO2 Machine # 14 Intake & Output 05/07/18 05/08/18 05/09/18 06:59 06:59 06:59 Intake Total 5130 2052 1834 Balance 5130 2052 1834 Weight 66.4 kg 66.1 kg General appearance: PRESENT: no acute distress Eye exam: PRESENT: PERRLA Respiratory exam: PRESENT: clear to auscultation lena Cardiovascular exam: PRESENT: +S1, +S2 Neurological exam: PRESENT: alert Results Laboratory Results: 05/07/18 05:18 05/08/18 09:39 05/08/18 09:39 Creatinine 0.69 Est GFR ( Amer) > 60 Est GFR (Non-Af Amer) > 60 Impressions: Chest/Abdomen CTA 04/29/18 23:15 IMPRESSION: 1. Acute pulmonary embolism involving the left main pulmonary artery extending into the left lower lumbar segmental branches. No evidence of right heart strain. 2. 2 distinct thick-walled cavitary lesion centered within the left lung apex, as stated above. Differential diagnosis includes infectious, neoplastic, inflammatory, and autoimmune processes. Correlate with clinical history. 3. Mediastinal left hilar adenopathy. Chest X-Ray 05/04/18 00:00 IMPRESSION: 1. Since the previous examination dated 04/29/2018, new extensive confluent densities in the area of previously identified left apex--left upper lobe cavitary lesions. Considerations for these findings include inflammatory/ infectious etiologies, TB, fungal/parasitic etiologies, with neoplasm not entirely excluded. 2. Interval placement of right internal jugular venous line. No evidence of pneumothorax. 3. COPD. Assessment & Plan - Diagnosis (1) Pulmonary cavitary lesion Is this a current diagnosis for this admission?: Yes (2) Pulmonary embolism Qualifiers: Pulmonary embolism type: other Chronicity: acute Acute cor pulmonale presence: without acute cor pulmonale Qualified Code(s): I26.99 - Other pulmonary embolism without acute cor pulmonale Is this a current diagnosis for this admission?: Yes (3) Tobacco abuse Is this a current diagnosis for this admission?: Yes (4) Alcohol abuse Is this a current diagnosis for this admission?: Yes
[2018-05-09] MEDS: IPRATROPIUM/ALBUTEROL 0.5-2.5 MG/3 ML AMPUL NEB SCH ×3 (01:59→14:06)
[2018-05-09 04:58] LABS: HEMATOCRIT 32.8 % (37.9-51.0); HEMOGLOBIN 11.4 g/dL (13.5-17.0); MEAN CORPUSCULAR HEMOGLOBIN 33.7 pg (27.0-33.4); MEAN CORPUSCULAR HGB CONC 34.8 g/dL (32.0-36.0); MEAN CORPUSCULAR VOLUME 97 fl (80-97); PLATELET COUNT 312 10^3/uL (150-450); RED BLOOD COUNT 3.38 10^6/uL (4.35-5.55); RED CELL DISTRIBUTION WIDTH 14.8 % (11.5-14.0); WHITE BLOOD COUNT 9.1 10^3/uL (4.0-10.5)
[2018-05-09] MEDS: ENOXAPARIN SODIUM INJ 80 MG/0.8 ML DISP.SYRIN SUBCUT SCH ×2 (09:57→21:20)
[2018-05-09] MEDS ORDERED: IPRATROPIUM/ALBUTEROL 0.5-2.5 MG/3 ML AMPUL NEB PRN (14:55)
--- NOTE | 2018-05-09 19:45 | PDOC PROGRESS REPORT ---
Subjective Progress Note for:: 05/09/18 Subjective:: Patient is alert improving Reason For Visit: PE, LUNG MASS, PNEUMONIA Physical Exam Vital Signs: Temp Pulse Resp BP Pulse Ox 98.7 F 90 16 114/77 94 05/09/18 15:14 05/09/18 19:00 05/09/18 15:14 05/09/18 15:14 05/09/18 15:14 Pulse Oximeter Continuous Start: 04/30/18 02: 42 Freq: RTQ4 Status: Complete Document 05/06/18 16:00 HCR (Rec: 05/06/18 17:52 HCR [email or web address]) Pulse Oximetry Assessment Oxygen Saturation (92-100) 95 Oxygen Delivery Method Room Air Fraction of Inspired Oxygen (FIO2) 21 Equipment Usage Equipment in Use Continuous SpO2 Machine # 14 Intake & Output 05/08/18 05/09/18 05/10/18 06:59 06:59 06:59 Intake Total 2051 1833 1586 Balance 2051 1833 1586 Weight 66.1 kg 64 kg General appearance: PRESENT: no acute distress Eye exam: PRESENT: PERRLA Respiratory exam: PRESENT: clear to auscultation lena Cardiovascular exam: PRESENT: +S1, +S2 GI/Abdominal exam: PRESENT: soft Neurological exam: PRESENT: alert Results Laboratory Results: 05/09/18 04:40 05/08/18 09:39 05/09/18 04:40 WBC 9.1 RBC 3.38 L Hgb 11.4 L Hct 32.8 L MCV 97 MCH 33.7 H MCHC 34.8 RDW 14.8 H Plt Count 312 Impressions: Chest/Abdomen CTA 04/29/18 23:15 IMPRESSION: 1. Acute pulmonary embolism involving the left main pulmonary artery extending into the left lower lumbar segmental branches. No evidence of right heart strain. 2. 2 distinct thick-walled cavitary lesion centered within the left lung apex, as stated above. Differential diagnosis includes infectious, neoplastic, inflammatory, and autoimmune processes. Correlate with clinical history. 3. Mediastinal left hilar adenopathy. Chest X-Ray 05/04/18 00:00 IMPRESSION: 1. Since the previous examination dated 04/29/2018, new extensive confluent densities in the area of previously identified left apex--left upper lobe cavitary lesions. Considerations for these findings include inflammatory/ infectious etiologies, TB, fungal/parasitic etiologies, with neoplasm not entirely excluded. 2. Interval placement of right internal jugular venous line. No evidence of pneumothorax. 3. COPD. Assessment & Plan - Diagnosis (1) Pulmonary cavitary lesion Is this a current diagnosis for this admission?: Yes (2) Pulmonary embolism Qualifiers: Pulmonary embolism type: other Chronicity: acute Acute cor pulmonale presence: without acute cor pulmonale Qualified Code(s): I26.99 - Other pulmonary embolism without acute cor pulmonale Is this a current diagnosis for this admission?: Yes (3) Tobacco abuse Is this a current diagnosis for this admission?: Yes (4) Alcohol abuse Is this a current diagnosis for this admission?: Yes
[2018-05-09] MEDS: LEVOFLOXACIN 750 MG TABLET PO SCH (21:21)
[2018-05-10 05:43] LABS: ABSOLUTE BASOPHILS # (AUTO) 0.1 10^3/uL (0.0-0.2); ABSOLUTE EOSINOPHILS # (AUTO) 0.3 10^3/uL (0.0-0.6); ABSOLUTE LYMPHOCYTES (AUTO) 1.1 10^3/uL (0.5-4.7); ABSOLUTE MONOCYTES (AUTO) 0.8 10^3/uL (0.1-1.4); ABSOLUTE NEUT (AUTO) 6.4 10^3/uL (1.7-8.2); BASOPHILS % (AUTO) 1.1 % (0-2); EOSINOPHILS % (AUTO) 3.1 % (0-6); HEMATOCRIT 34.9 % (37.9-51.0); HEMOGLOBIN 11.9 g/dL (13.5-17.0); LYMPHOCYTES % (AUTO) 12.9 % (13-45); MEAN CORPUSCULAR HEMOGLOBIN 33.1 pg (27.0-33.4); MEAN CORPUSCULAR HGB CONC 34.1 g/dL (32.0-36.0); MEAN CORPUSCULAR VOLUME 97 fl (80-97); MONOCYTES % (AUTO) 9.3 % (3-13); PLATELET COUNT 332 10^3/uL (150-450); RED BLOOD COUNT 3.59 10^6/uL (4.35-5.55); RED CELL DISTRIBUTION WIDTH 14.7 % (11.5-14.0); SEGMENTED NEUTROPHILS % (AUTO) 73.6 % (42-78); TOTAL CELLS COUNTED % (AUTO) 100 %; WHITE BLOOD COUNT 8.7 10^3/uL (4.0-10.5)
[2018-05-10] MEDS: ENOXAPARIN SODIUM INJ 80 MG/0.8 ML DISP.SYRIN SUBCUT SCH ×2 (09:19→21:42)
--- NOTE | 2018-05-10 19:14 | PDOC DISCHARGE SUMMARY ---
General - Admit/Disc Date/PCP Admission Date/Primary Care Provider: 04/30/18 02:48 СВЕТЛАНА SANABRIA MD Discharge Date: 05/10/18 - Discharge Diagnosis (1) Pulmonary cavitary lesion Is this a current diagnosis for this admission?: Yes (2) Pulmonary embolism Is this a current diagnosis for this admission?: Yes (3) Tobacco abuse Is this a current diagnosis for this admission?: Yes (4) Alcohol abuse Is this a current diagnosis for this admission?: Yes - Additional Information Resuscitation Status: Full Code Prescriptions: Levofloxacin [Levaquin 750 mg Tablet] 750 mg PO QHS #14 tablet Apixaban [Eliquis 5 mg Tablet] 5 mg PO BID #60 tablet Home Medications: Acetaminophen [Tylenol 325 mg Tablet] 650 mg PO Q4HP PRN tablet 05/10/18 Apixaban [Eliquis 5 mg Tablet] 5 mg PO BID #60 tablet 05/10/18 Levofloxacin [Levaquin 750 mg Tablet] 750 mg PO QHS #14 tablet 05/10/18 History of Present Illness History of Present Illness: ELIZABETH JOHNS is a 58 year old male, He came to the emergency room for evaluation of shortness of breath, CTA chest shows large left cavitary lesion and pulmonary embolus. Tuberculosis was rule out with serial sputum TB testing , he was treated empirically with IV antibiotic, he was seen by pulmonary Dr. Garces, bronchoscopy and CT-guided needle lung biopsy was not done., It was felt to be high risk because of the combination of pulmonary embolism and cavitary lesion. The differential diagnosis includes neoplasm, he will need a close out-patient follow up with Pulmonary. Physical Exam Vital Signs: Temp Pulse Resp BP Pulse Ox 99.0 F 87 20 119/80 96 05/10/18 15:31 05/10/18 15:31 05/10/18 15:31 05/10/18 15:31 05/10/18 15:31 Pulse Oximeter Continuous Start: 04/30/18 02: 42 Freq: RTQ4 Status: Complete Document 05/06/18 16:00 HCR (Rec: 05/06/18 17:52 HCR [email or web address]) Pulse Oximetry Assessment Oxygen Saturation (92-100) 95 Oxygen Delivery Method Room Air Fraction of Inspired Oxygen (FIO2) 21 Equipment Usage Equipment in Use Continuous SpO2 Machine # 14 Intake & Output 05/09/18 05/10/18 05/11/18 06:59 06:59 06:59 Intake Total 1834 1823 1137 Balance 1834 1823 1137 Weight 64 kg 65.5 kg General appearance: PRESENT: no acute distress Eye exam: PRESENT: PERRLA Respiratory exam: PRESENT: clear to auscultation lena Cardiovascular exam: PRESENT: +S2 Murmur grade: 3 GI/Abdominal exam: PRESENT: soft Neurological exam: PRESENT: alert, CN II-XII grossly intact Results Laboratory Results: 05/10/18 05:05 05/08/18 09:39 05/10/18 05:05 WBC 8.7 RBC 3.59 L Hgb 11.9 L Hct 34.9 L MCV 97 MCH 33.1 MCHC 34.1 RDW 14.7 H Plt Count 332 Seg Neutrophils % 73.6 Lymphocytes % 12.9 L Monocytes % 9.3 Eosinophils % 3.1 Basophils % 1.1 Absolute Neutrophils 6.4 Absolute Lymphocytes 1.1 Absolute Monocytes 0.8 Absolute Eosinophils 0.3 Absolute Basophils 0.1 Impressions: Chest/Abdomen CTA 04/29/18 23:15 IMPRESSION: 1. Acute pulmonary embolism involving the left main pulmonary artery extending into the left lower lumbar segmental branches. No evidence of right heart strain. 2. 2 distinct thick-walled cavitary lesion centered within the left lung apex, as stated above. Differential diagnosis includes infectious, neoplastic, inflammatory, and autoimmune processes. Correlate with clinical history. 3. Mediastinal left hilar adenopathy. Chest X-Ray 05/04/18 00:00 IMPRESSION: 1. Since the previous examination dated 04/29/2018, new extensive confluent densities in the area of previously identified left apex--left upper lobe cavitary lesions. Considerations for these findings include inflammatory/ infectious etiologies, TB, fungal/parasitic etiologies, with neoplasm not entirely excluded. 2. Interval placement of right internal jugular venous line. No evidence of pneumothorax. 3. COPD. Qualifiers - * PATIENT BEING DISCHARGED WITH ANY OF THE FOLLOWING DIAGNOSIS: No
[2018-05-10] MEDS: LEVOFLOXACIN 750 MG TABLET PO SCH (21:42)
[2018-05-11 05:54] LABS: HEMATOCRIT 35.2 % (37.9-51.0); HEMOGLOBIN 12.2 g/dL (13.5-17.0); MEAN CORPUSCULAR HEMOGLOBIN 33.4 pg (27.0-33.4); MEAN CORPUSCULAR HGB CONC 34.6 g/dL (32.0-36.0); MEAN CORPUSCULAR VOLUME 97 fl (80-97); PLATELET COUNT 323 10^3/uL (150-450); RED BLOOD COUNT 3.65 10^6/uL (4.35-5.55); RED CELL DISTRIBUTION WIDTH 14.6 % (11.5-14.0); WHITE BLOOD COUNT 9.6 10^3/uL (4.0-10.5)
[2018-05-11] MEDS: ENOXAPARIN SODIUM INJ 80 MG/0.8 ML DISP.SYRIN SUBCUT SCH (10:44)
[2018-05-11 10:56] VITALS: BP 129/60
== END 2018-05-11 11:32 | disposition home or self-care (01) | DRG 176 ==
LOC: ER 19:14 → EH 04-30 02:48 → 3N 04-30 12:49
PROVIDERS: ADMIT Internal Medicine; ATTEND Internal Medicine
PROC: 02HV33Z Insertion of Infusion Device into Superior Vena Cava, Percutaneous Approach (ICD-10-PCS; principal; 2018-05-04)
DX: I26.99 Other pulmonary embolism without acute cor pulmonale (principal); E87.1 Hypo-osmolality and hyponatremia; R78.81 Bacteremia; J98.4 Other disorders of lung; B96.5 Pseudomonas (aeruginosa) (mallei) (pseudomallei) as the cause of diseases classified elsewhere; F10.10 Alcohol abuse, uncomplicated; I10 Essential (primary) hypertension; F17.200 Nicotine dependence, unspecified, uncomplicated; Z88.0 Allergy status to penicillin
CPT/HCPCS: 36415; 71045; 71046; 71275; 80048; 80053; 80202; 81001; 82272; 82565; 83880; 84484; 85025; 85027; 85610; 85730; 86480; 86701; 87015; 87040; 87070; 87077; 87101; 87116; 87186; 87205; 87206; 93005; 93010; 94640; 94667; 94668; 94762; 94799; 96360; 99291; C1751; J1650; J1956; J3370; J3490; J7060; J7620

== ENCOUNTER 2018-05-21 16:45 | Emergency (ER) | payer SELFPAY ==
[2018-05-21] MEDS ORDERED: LIDOCAINE 5% (700 MG) TRANSDERMAL ADH..PATCH TP ONE (17:11)
--- NOTE | 2018-05-21 17:12 | ER Document Report ---
ED Medical Screen (RME) - General Chief Complaint: Chest Pain Stated Complaint: CHEST PAIN Time Seen by Provider: 05/21/18 17:07 TRAVEL OUTSIDE OF THE [place] IN LAST 30 DAYS: No - HPI Notes: 05/21/18 17:12 On Eliquis for recent diagnosis of PE left-sided chest pain intermittent with movement and breathing since this morning - Related Data Allergies/Adverse Reactions: Penicillins Allergy (Severe, Verified 04/29/18 19:26) rash Past Medical History - Social History Frequency of alcohol use: None Drug Abuse: None - Past Medical History Cardiac Medical History: Reports: Hx Hypertension Renal/ Medical History: Denies: Hx Peritoneal Dialysis Psychiatric Medical History: Denies: Hx Depression Past Surgical History: Reports: Hx Testicular Surgery - Right removed for CA - Immunizations Hx Diphtheria, Pertussis, Tetanus Vaccination: Yes Review of Systems - Review of Systems Cardiovascular: Chest pain Physical Exam - Vital signs Vitals: Temp Pulse Resp BP Pulse Ox 97.9 F 80 18 149/83 H 97 05/21/18 17:02 05/21/18 17:02 05/21/18 17:02 05/21/18 17:02 05/21/18 17:02 - Respiratory Respiratory status: No respiratory distress Chest status: Nontender Breath sounds: Normal Chest palpation: Normal - Cardiovascular Rhythm: Regular Heart sounds: Normal auscultation Course - Vital Signs Vital signs: Temp Pulse Resp BP Pulse Ox 97.9 F 80 18 149/83 H 97 05/21/18 17:02 05/21/18 17:02 05/21/18 17:02 05/21/18 17:02 05/21/18 17:02 Doctor's Discharge - Discharge Referrals: СВЕТЛАНА SANABRIA MD [Primary Care Provider] - Follow up as needed
--- NOTE | 2018-05-21 18:12 | EKG REPORT ---
SEVERITY:- NORMAL ECG - SINUS RHYTHM : Confirmed by: Tiki Murray MD 21-May-2018 18:11:51
[2018-05-21 18:13] LABS: ABSOLUTE BASOPHILS # (AUTO) 0.2 10^3/uL (0.0-0.2); ABSOLUTE EOSINOPHILS # (AUTO) 0.3 10^3/uL (0.0-0.6); ABSOLUTE LYMPHOCYTES (AUTO) 1.8 10^3/uL (0.5-4.7); ABSOLUTE MONOCYTES (AUTO) 1.1 10^3/uL (0.1-1.4); ABSOLUTE NEUT (AUTO) 9.5 10^3/uL (1.7-8.2); BASOPHILS % (AUTO) 1.3 % (0-2); EOSINOPHILS % (AUTO) 2.4 % (0-6); HEMOGLOBIN 12.7 g/dL (13.5-17.0); LYMPHOCYTES % (AUTO) 13.9 % (13-45); MEAN CORPUSCULAR HEMOGLOBIN 32.7 pg (27.0-33.4); MEAN CORPUSCULAR HGB CONC 34.4 g/dL (32.0-36.0); MEAN CORPUSCULAR VOLUME 95 fl (80-97); MONOCYTES % (AUTO) 8.5 % (3-13); PLATELET COUNT 396 10^3/uL (150-450); RED BLOOD COUNT 3.89 10^6/uL (4.35-5.55); RED CELL DISTRIBUTION WIDTH 14.8 % (11.5-14.0); SEGMENTED NEUTROPHILS % (AUTO) 73.9 % (42-78); TOTAL CELLS COUNTED % (AUTO) 100 %; WHITE BLOOD COUNT 12.8 10^3/uL (4.0-10.5)
--- NOTE | 2018-05-21 18:23 | RADIOLOGY REPORT (SQ) ---
EXAM DESCRIPTION: CHEST 2 VIEWS COMPLETED DATE/TIME: 05/21/2018 5:47 pm REASON FOR STUDY: left sided cp COMPARISON: 04/29/2018 EXAM PARAMETERS: NUMBER OF VIEWS: two views TECHNIQUE: Digital Frontal and Lateral radiographic views of the chest acquired. RADIATION DOSE: NA LIMITATIONS: none FINDINGS: LUNGS AND PLEURA: Cavitary lesion in the left apex shows improvement. No acute infiltrate or effusion. The lungs are hyperexpanded. MEDIASTINUM AND HILAR STRUCTURES: No masses or contour abnormalities. HEART AND VASCULAR STRUCTURES: Heart normal size. No evidence for failure. BONES: No acute findings. HARDWARE: None in the chest. OTHER: No other significant finding. IMPRESSION: Improved cavitary lesions in the left apex. The improvement suggests that the etiology of this is infectious rather than neoplastic. Was the definitive diagnosis ever made? TECHNICAL DOCUMENTATION: JOB ID: [id number] [employer]- All Rights Reserved Reading location - IP/workstation name: [email or web address]
[2018-05-21 18:25] LABS: INTERNATIONAL RATION (INR) 1.14; PROTHROMBIN TIME 15.2 SEC (11.4-15.4)
[2018-05-21 18:31] LABS: ALANINE AMINOTRANSFERASE 32 U/L (21-72); ALBUMIN 3.7 g/dL (3.5-5.0); ALKALINE PHOSPHATASE 82 U/L (38-126); ANION GAP 13 (5-19); ASPARTATE AMINO TRANSFERASE 17 U/L (17-59); BILIRUBIN,DIRECT 0.3 mg/dL (0.0-0.4); BILIRUBIN,TOTAL 0.6 mg/dL (0.2-1.3); BLOOD UREA NITROGEN 7 mg/dL (7-20); CALCIUM 9.6 mg/dL (8.4-10.2); CARBON DIOXIDE 23 mmol/L (22-30); CHLORIDE 97 mmol/L (98-107); CREATINE KINASE 38 U/L (55-170); GLUCOSE 88 mg/dL (75-110); POTASSIUM 4.4 mmol/L (3.6-5.0); SODIUM 133.3 mmol/L (137-145); TOTAL PROTEIN 7.8 g/dL (6.3-8.2)
[2018-05-21 18:40] LABS: CREATINE KINASE MB 1.01 ng/mL (<4.55)
[2018-05-21 19:08] LABS: TROPONIN I < 0.012 ng/mL
--- NOTE | 2018-05-21 19:10 | ER Document Report ---
ED General - General Chief Complaint: Chest Pain Stated Complaint: CHEST PAIN Time Seen by Provider: 05/21/18 17:07 Notes: Patient is a 58-year-old male with recent diagnosis of a left-sided PE as well as pulmonary cavitary lesions, recently started on apixaban as well as levofloxacin who presents with intermittent left-sided chest discomfort that has been ongoing for the past 24 hours. The patient states that his work of breathing and coughing is overall dramatically improved since discharge but that he was concerned about the intermittent left-sided chest discomfort as he had read about possible side effects of apixaban. No pain at the time of my assessment. He states it is an intermittent, stabbing pain left side of the chest that does not radiate. He states moving or lying in a certain position seems to trigger the pain. He denies any pleuritic component to the pain. No hemoptysis. He has not yet followed up with his general doctor regarding his recent hospitalization. He denies fever or constitutional symptoms. TRAVEL OUTSIDE OF THE [place] IN LAST 30 DAYS: No - Related Data Allergies/Adverse Reactions: Penicillins Allergy (Severe, Verified 04/29/18 19:26) rash Past Medical History - General Information source: Patient - Social History Smoking Status: Former Smoker Frequency of alcohol use: None Drug Abuse: None Lives with: Family Family History: Reviewed & Not Pertinent Patient has suicidal ideation: No Patient has homicidal ideation: No - Past Medical History Cardiac Medical History: Reports: Hx Hypertension Renal/ Medical History: Denies: Hx Peritoneal Dialysis Psychiatric Medical History: Denies: Hx Depression Past Surgical History: Reports: Hx Testicular Surgery - Right removed for CA - Immunizations Hx Diphtheria, Pertussis, Tetanus Vaccination: Yes Review of Systems - Review of Systems Notes: Constitutional: Negative for fever. HENT: Negative for sore throat. Eyes: Negative for visual changes. Cardiovascular: Positive for intermittent chest pain Respiratory: Negative for shortness of breath. Gastrointestinal: Negative for abdominal pain, vomiting or diarrhea. Genitourinary: Negative for dysuria. Musculoskeletal: Negative for back pain. Skin: Negative for rash. Neurological: Negative for headaches, weakness or numbness. 10 point ROS negative except as marked above and in HPI. Physical Exam - Vital signs Vitals: Temp Pulse Resp BP Pulse Ox 97.9 F 80 18 149/83 H 97 05/21/18 17:02 05/21/18 17:02 05/21/18 17:02 05/21/18 17:02 05/21/18 17:02 Interpretation: Normal Notes: PHYSICAL EXAMINATION: GENERAL: Well-appearing, well-nourished and in no acute distress. HEAD: Atraumatic, normocephalic. EYES: Pupils equal round and reactive to light, extraocular movements intact, sclera anicteric, conjunctiva are normal. ENT: nares patent, oropharynx clear without exudates. Moist mucous membranes. NECK: Normal range of motion, supple without lymphadenopathy LUNGS: Breath sounds clear to auscultation bilaterally and equal. No wheezes rales or rhonchi. HEART: Regular rate and rhythm without murmurs ABDOMEN: Soft, nontender, normoactive bowel sounds. No guarding, no rebound. No masses appreciated. EXTREMITIES: Normal range of motion, no pitting or edema. No cyanosis. NEUROLOGICAL: No focal neurological deficits. Moves all extremities spontaneously and on command. PSYCH: Normal mood, normal affect. SKIN: Warm, Dry, normal turgor, no rashes or lesions noted. Course - Re-evaluation Re-evalutation: 05/21/18 19:07 Presentation of chest pain in an otherwise well appearing patient. Low clinical suspicion for ACS given clinical history, exam, EKG without ST elevations or depressions, and negative initial troponin. HEART score less than or equal to 3. CXR without evidence of pneumothorax and does show improvement of the cavitary lesions. No widened mediastinum. Aortic dissection also seems unlikely given history, symmetric pulses, CXR, and vitals. Patient has a known history of a left-sided pulmonary embolus and while this could be playing into the patient's pain, he is ready on appropriate therapy and I do not believe that 10 days of therapy would qualify as failure of this therapy in terms of the pulmonary embolus itself. I discussed with the patient and his daughter at the bedside about proceeding with a repeat CTA although again we have reviewed that this would likely not price changer at this point and the patient and family have declined which I believe is appropriate. I have emphasized the patient should continue his apixaban as an outpatient. At this time will discharge with return precautions and follow-up recommendations. Verbal discharge instructions given a the bedside and opportunity for questions given. Medication warnings reviewed. Patient is in agreement with this plan and has verbalized understanding of return precautions and the need for primary care follow-up in the next 24-72 hours. - Vital Signs Vital signs: Temp Pulse Resp BP Pulse Ox 97.9 F 80 18 149/83 H 97 05/21/18 18:27 05/21/18 18:27 05/21/18 18:27 05/21/18 18:27 05/21/18 18:27 - Laboratory Result Diagrams: 05/21/18 17:56 05/21/18 17:56 Laboratory results interpreted by me: 05/21/18 05/21/18 17:56 17:56 WBC 12.8 H RBC 3.89 L Hgb 12.7 L Hct 37.0 L RDW 14.8 H Absolute Neutrophils 9.5 H Sodium 133.3 L Chloride 97 L Creatine Kinase 38 L - Diagnostic Test Radiology reviewed: Image reviewed, Reports reviewed Radiology results interpreted by me: 05/21/18 19:07 Chest x-ray: Improving cavitary lesions - EKG Interpretation by Me Additional EKG results interpreted by me: 05/21/18 19:07 Sinus rhythm. Rate 79. No ST elevations or depressions. QTC is 441. Discharge - Discharge Clinical Impression: Intermittent chest pain, Pulmonary cavitary lesion Pulmonary embolism Qualifiers: Pulmonary embolism type: other Chronicity: chronic Acute cor pulmonale presence : without acute cor pulmonale Qualified Code(s): I27.82 - Chronic pulmonary embolism Condition: Good Disposition: HOME, SELF-CARE Additional Instructions: Your seen today for left-sided chest discomfort that could be related to either muscles in your chest wall or your known pulmonary embolus on that side. Your labs are otherwise unremarkable and your chest x-ray shows that the lesions in your lungs are actually improving which hopefully suggest that these are infectious as opposed to cancerous. Please follow-up with your primary care doctor within the next 24-48 hours. You may take Tylenol 1000 mg every 6 hours as needed for your chest discomfort. You could also apply heat to the chest as needed. Please return to the emergency department immediately if you become increasingly short of breath, have worsening of your pain, pass out, develop a fever of greater than 100.4 F or any other symptoms that are worrisome to you. Referrals: СВЕТЛАНА SANABRIA MD [Primary Care Provider] - Follow up tomorrow
[2018-05-21 19:15] VITALS: BP 139/81
== END 2018-05-21 19:23 | disposition home or self-care (01) ==
LOC: ER 16:45
DX: I27.82 Chronic pulmonary embolism (principal); J98.4 Other disorders of lung; R07.9 Chest pain, unspecified; Z87.891 Personal history of nicotine dependence; Z88.0 Allergy status to penicillin; I10 Essential (primary) hypertension
CPT/HCPCS: 36415; 71046; 80053; 82550; 82553; 84484; 85025; 85610; 93005; 93010; 99285

== ENCOUNTER → 2018-08-10 | Outpatient (CLI) | payer SELFPAY ==
--- NOTE | 2018-08-10 14:41 | RADIOLOGY REPORT (SQ) ---
EXAM DESCRIPTION: CT CHEST WITH COMPLETED DATE/TIME: 08/10/2018 2:17 pm REASON FOR STUDY: J98.4 OTHER DISORDERS OF LUNG J98.4 OTHER DISORDERS OF LUNG COMPARISON: 04/30/2018 TECHNIQUE: CT scan of the chest performed using helical scanning technique with dynamic intravenous contrast injection. Images reviewed with lung, soft tissue and bone windows. Reconstructed coronal and sagittal MPR and MIP images reviewed. All images stored on PACS. All CT scanners at this facility use dose modulation, iterative reconstruction, and/or weight based d osing when appropriate to reduce radiation dose to as low as reasonably achievable (ALARA). [facility]: Dose Right [facility]: CareDose [facility]: Dose Right [facility]: Teradose 4D [facility]: Verteego ([employer]) CONTRAST TYPE AND DOSE: contrast/concentration: Isovue 350.00 mg/ml; Total Contrast Delivered: 80.0 ml; Total Saline Delivered: 55.0 ml RENAL FUNCTION: Creatinine 1.1 RADIATION DOSE: CT Rad equipment meets quality standard of care and radiation dose reduction techniq ues were employed. CTDIvol: 4.9 mGy. DLP: 224 mGy-cm. . LIMITATIONS: None. FINDINGS: LUNGS AND PLEURA: Paraseptal emphysema in the upper lobes. 1.5 x 1.0 cm spiculated nodule left upper lobe not present on the prior. Previously described cavitary lesion abutting the posteri or major fissure in the upper lobes has decreased in size and is no longer thick walled. Unchanged g round-glass opacity in the lingula. No effusions. HILAR AND MEDIASTINAL STRUCTURES: No identified masses or abnormal nodes. HEART AND VASCULAR STRUCTURES: Mild dilatation of the ascending aorta is unchanged. Pulmonary emboli have resolved. HARDWARE: None in the chest. UPPER ABDOMEN: No significant findings. Limited exam. THYROID AND OTHER SOFT TISSUES: No masses. No adenopathy. BONES: No acute findings. OTHER: No other significant finding. IMPRESSION: 1. Decrease in size of left upper lobe cavitary lesion. Wall thickening has resolved. 2. New left upper lobe nodule 1.5 cm. This could represent scarring, however continued follow-up is recommended. TECHNICAL DOCUMENTATION: JOB ID: [id number] Quality ID # [id number]: Final reports with documentation of one or more dose reduction techniques (e.g., Au tomated exposure control, adjustment of the mA and/or kV according to patient size, use of iterative reconstruction technique) 2010 [employer]- All Rights Reserved Reading location - IP/workstation name: [email or web address]
== END ==
LOC: RAD 15:31
PROVIDERS: ATTEND Internal Medicine Critical Care Medicine
DX: J98.4 Other disorders of lung (principal)
CPT/HCPCS: 71260; 82565

== ENCOUNTER → 2018-10-08 | Outpatient (CLI) | payer OTHER ==
[~2018-10-08] MED LIST: ALBUTEROL SULFATE 0.083% NEB 2.5 MG/3 ML AMPUL NEB ONE
--- NOTE | 2018-10-09 17:16 | Pulmonary Function Test ---
Pulmonary Function Test Date of Procedure:: 10/09/18 INDICATION:: Dyspnea Referring Provider: [employer] And Chief Operating Officer: Aide Foster CIRCULATION MANAGER - Report Spirometry: FVC 4.93 L 122% postbronchodilator 4.86 L 121% FEV1 2.74 L 5% postbronchodilator 2.90 L 90% FEV1/FVC % 56 postbronchodilator 62 predicted 80 FEF 25-75% 1.00 L 30% postbronchodilator 1.20 L 36% Lung Volume: Total lung capacity 7.09 L 115% Vital capacity 4.93 L 122% Inspiratory capacity 3.00 L FRC N2 4.09 L 118% ERV 1.56 L RV 2.16 L 97% RV/TLC % 30 predicted 37 Diffusion Capactity: Diffusion capacity 16.5 74% DLCO/VA 2.65 68% Impression: Moderate obstructive ventilatory defect minimal response to bronchodilator therapy. This does not preclude a clinical trial of bronchodilator therapy. No restrictive ventilatory defect. Mild hyperinflation. No air trapping. Mild decrease in diffusion capacity.
[2018-10-10 13:39] LABS: ANTITHROMBIN III ACTIVITY 116 % (75-135)
[2018-10-11 07:51] LABS: ANTICARDIOLIPIN IGA AB <9 APL U/mL (0-11); ANTICARDIOLIPIN IGG AB <9 GPL U/mL (0-14); ANTICARDIOLIPIN IGM AB 14 MPL U/mL (0-12)
== END ==
LOC: RT 09:04
PROVIDERS: ATTEND Family Medicine
DX: I26.99 Other pulmonary embolism without acute cor pulmonale (principal); A49.8 Other bacterial infections of unspecified site; R91.1 Solitary pulmonary nodule; J98.4 Other disorders of lung; Z72.0 Tobacco use
CPT/HCPCS: 36415; 81240; 81241; 85300; 86147; 94060; 94727; 94729; 94761

== ENCOUNTER → 2018-10-17 | Outpatient (CLI) | payer OTHER ==
--- NOTE | 2018-10-17 11:12 | RADIOLOGY REPORT (SQ) ---
EXAM DESCRIPTION: CT CHEST WITHOUT COMPLETED DATE/TIME: 10/17/2018 9:57 am REASON FOR STUDY: R91.1 SOLITARY PULMONARY NODULE R91.1 SOLITARY PULMONARY NODULE COMPARISON: CT CHEST 08/10/2018 CT ANGIO CHEST 04/30/2018 TECHNIQUE: CT scan performed of the chest without intravenous contrast. Images reviewed with lung, soft tissue and bone windows. Reconstructed coronal and sagittal MPR images reviewed. All images st ored on PACS. All CT scanners at this facility use dose modulation, iterative reconstruction, and/or weight based d osing when appropriate to reduce radiation dose to as low as reasonably achievable (ALARA). [facility]: Dose Right [facility]: CareDose [facility]: Dose Right [facility]: Teradose 4D [facility]: [employer] RADIATION DOSE: CT Rad equipment meets quality standard of care and radiation dose reduction techniq ues were employed. CTDIvol: 5.6 mGy. DLP: 250 mGy-cm. mGy. LIMITATIONS: No technical limitations. FINDINGS: LUNGS AND PLEURA: The 1.5 x 1.1 cm nodule in the anterior left upper lobe seen on 08/10/[address] chest has decreased in size, now with 0.9 x 0.7 cm in size with more linear bandlike appearance . The cavitary pneumonia seen in the left upper lobe low 04/30/2018 has resolved. There is now a thin w alled pneumatocele in the posterior left upper lobe, 5 x 3 cm in size. No worrisome pulmonary nodules. No acute infiltrates. No pleural effusion. No pneumothorax. Obstr uctive lung disease most pronounced in the apices. HILAR AND MEDIASTINAL STRUCTURES: No identified masses or abnormal nodes. No obvious aneurysm. HEART AND VASCULAR STRUCTURES: No aneurysm. No pericardial effusion. Moderate coronary artery calci fications. UPPER ABDOMEN: No significant findings. Limited exam. THYROID AND OTHER SOFT TISSUES: No masses. No adenopathy. BONES: No significant finding. HARDWARE: None in the chest. OTHER: No other significant findings. IMPRESSION: Benign postinfectious/postinflammatory changes in the left upper lobe TECHNICAL DOCUMENTATION: JOB ID: [id number] Quality ID # [id number]: Final reports with documentation of one or more dose reduction techniques (e.g., Au tomated exposure control, adjustment of the mA and/or kV according to patient size, use of iterative reconstruction technique) 2010 [employer]- All Rights Reserved Reading location - IP/workstation name: [email or web address]
== END ==
LOC: RAD 09:41
PROVIDERS: ATTEND Internal Medicine Critical Care Medicine
DX: R91.1 Solitary pulmonary nodule (principal)
CPT/HCPCS: 71250

== ENCOUNTER → 2019-04-22 | Outpatient (CLI) | payer OTHER ==
--- NOTE | 2019-04-22 16:35 | Pulmonary Function Test ---
Pulmonary Function Test Date of Procedure:: 04/22/19 INDICATION:: Dyspnea Referring Provider: Dr. 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
== END ==
LOC: RT 12:15
PROVIDERS: ATTEND Family Medicine
DX: J44.9 Chronic obstructive pulmonary disease, unspecified (principal)
CPT/HCPCS: 94060; 94761

== ENCOUNTER → 2019-05-02 | Outpatient (CLI) | payer OTHER ==
--- NOTE | 2019-05-02 13:04 | RADIOLOGY REPORT (SQ) ---
EXAM DESCRIPTION: CHEST 2 VIEWS COMPLETED DATE/TIME: 05/02/2019 12:51 pm REASON FOR STUDY: COPD (J44.9) COMPARISON: 05/21/2018 EXAM PARAMETERS: NUMBER OF VIEWS: two views TECHNIQUE: Digital Frontal and Lateral radiographic views of the chest acquired. RADIATION DOSE: NA LIMITATIONS: none FINDINGS: LUNGS AND PLEURA: Improved left apical aeration from prior radiograph with biapical linea r opacities, likely scarring. No new consolidation. No significant effusion. No pneumothorax. MEDIASTINUM AND HILAR STRUCTURES: No masses or contour abnormalities. HEART AND VASCULAR STRUCTURES: Heart normal size. No evidence for failure. BONES: No acute findings. HARDWARE: None in the chest. OTHER: No other significant finding. IMPRESSION: Biapical scarring and emphysematous change. No evidence of acute cardiopulmonary proces s. TECHNICAL DOCUMENTATION: JOB ID: [id number] [email or web address]- All Rights Reserved Reading location - IP/workstation name: [email or web address]
== END ==
LOC: RAD 12:38
DX: J44.9 Chronic obstructive pulmonary disease, unspecified (principal)
CPT/HCPCS: 71046